=== PATIENT | female | born 1945 | race Two or more races ===

== ENCOUNTER 2017-05-04 11:23 | Emergency (ER) | payer MEDICARE ==
[2017-05-04 11:32] VITALS: TEMP 98.2
[2017-05-04] MEDS ORDERED: SODIUM CHLORIDE 0.9% 1,000 ML IV STA (12:27)
[2017-05-04] MEDS ORDERED: METOCLOPRAMIDE 5 MG/ML 2 ML VIAL IVP STA (12:31)
--- NOTE | 2017-05-04 12:35 | ED ---
General Adult HPI - General Chief complaint: Dizziness Stated complaint: Light headed, dizzy Time Seen by Provider: 05/04/17 12:00 Source: patient, RN notes reviewed Mode of arrival: wheelchair Limitations: no limitations - History of Present Illness Initial comments: Patient is a pleasant 71-year-old female presenting to the emergency department or lightheadedness. Patient did have an episode 2 days ago. Patient felt fine yesterday. This morning patient felt nauseated and lightheaded again. Patient has had some belching. Patient did have some facial flushing that has resolved. No chest pain. No dyspnea. No confusion or weakness. Patient is currently symptom-free. - Related Data Home Medications Medication Instructions Recorded Confirmed Aspirin 81 mg PO BID 05/04/17 05/04/17 Calcium Carbonate [Calcium] 600 mg PO Q72H 05/04/17 05/04/17 Cholecalciferol [Vitamin D3] 1,000 unit PO Q72H 05/04/17 05/04/17 Metoprolol Succinate (ER) [Toprol 25 mg PO HS 05/04/17 05/04/17 Xl] Vitamin B Complex 1 tab PO Q72H 05/04/17 05/04/17 Allergies Allergy/AdvReac Type Severity Reaction Status Date / Time No Known Allergies Allergy Verified 05/04/17 12:28 Review of Systems ROS Statement: Those systems with pertinent positive or pertinent negative responses have been documented in the HPI. ROS Other: All systems not noted in ROS Statement are negative. Constitutional: Denies: fever Eyes: Denies: eye pain ENT: Denies: ear pain Respiratory: Denies: dyspnea Cardiovascular: Denies: chest pain Endocrine: Denies: fatigue Gastrointestinal: Reports: nausea. Denies: abdominal pain Genitourinary: Denies: urgency Musculoskeletal: Denies: back pain Skin: Denies: rash Neurological: Denies: weakness Past Medical History Past Medical History: Atrial Flutter, Coronary Artery Disease (CAD) Additional Past Medical History / Comment(s): mitral valve prolase History of Any Multi-Drug Resistant Organisms: None Reported Past Surgical History: Bowel Resection, Hysterectomy, Orthopedic Surgery Additional Past Surgical History / Comment(s): lt knee Past Psychological History: No Psychological Hx Reported Smoking Status: Never smoker Past Alcohol Use History: Occasional Past Drug Use History: None Reported General Exam Limitations: no limitations General appearance: alert, in no apparent distress Head exam: Present: atraumatic Eye exam: Present: normal appearance, PERRL, EOMI. Absent: nystagmus ENT exam: Present: normal oropharynx Neck exam: Present: normal inspection Respiratory exam: Present: normal lung sounds bilaterally Cardiovascular Exam: Present: regular rate, normal rhythm Expanded Peripheral pulses: 2+: Radial (R), Radial (L), Dorsalis Pedis (R), Dorsalis Pedis (L) GI/Abdominal exam: Present: soft. Absent: tenderness Extremities exam: Present: normal inspection Neurological exam: Present: alert, oriented X3, CN II-XII intact. Absent: motor sensory deficit Psychiatric exam: Present: normal affect, normal mood Skin exam: Present: normal color Course Vital Signs 05/04/17 05/04/17 05/04/17 11:29 12:39 13:20 Temperature 98.2 F Pulse Rate 63 61 60 Respiratory 20 18 17 Rate Blood Pressure 197/88 159/74 176/79 O2 Sat by Pulse 99 100 99 Oximetry 05/04/17 14:47 Temperature Pulse Rate 67 Respiratory 16 Rate Blood Pressure 176/82 O2 Sat by Pulse 97 Oximetry EKG Findings - EKG Comments: EKG Findings:: Sinus bradycardia 59. PVC present. For screening AV block with [place] of 204. QRS 92. QT 444. QTC 439. Normal axis. Incomplete right bundle- branch block. No acute ST change. Medical Decision Making - Medical Decision Making Patient reevaluated and resting comfortably in bed. Patient remained symptom- free. Patient did get out of bed 3 times and ambulate without any difficulty. Patient is comfortable with discharge home. Patient is advised close follow-up with her doctor. - Lab Data Result diagrams: 05/04/17 11:52 05/04/17 11:52 Lab Results 05/04/17 05/04/17 05/04/17 Range/Units 11:52 11:52 11:52 WBC 8.7 (3.8-10.6) k/uL RBC 4.10 (3.80-5.40) m/uL Hgb 13.2 (11.4-16.0) gm/dL Hct 40.4 (34.0-46.0) % MCV 98.6 (80.0-100.0) fL MCH 32.2 (25.0-35.0) pg MCHC 32.7 (31.0-37.0) g/dL RDW 14.5 (11.5-15.5) % Plt Count 226 (150-450) k/uL Neutrophils % 70 % Lymphocytes % 22 % Monocytes % 6 % Eosinophils % 1 % Basophils % 0 % Neutrophils # 6.1 (1.3-7.7) k/uL Lymphocytes # 1.9 (1.0-4.8) k/uL Monocytes # 0.5 (0-1.0) k/uL Eosinophils # 0.1 (0-0.7) k/uL Basophils # 0.0 (0-0.2) k/uL PT 9.8 (9.0-12.0) sec INR 1.0 (<1.1) APTT 22.0 (22.0-30.0) sec Sodium 138 (137-145) mmol/L Potassium 4.3 (3.5-5.1) mmol/L Chloride 102 (98-107) mmol/L Carbon Dioxide 27 (22-30) mmol/L Anion Gap 9 mmol/L BUN 18 H (7-17) mg/dL Creatinine 0.75 (0.52-1.04) mg/dL Est GFR (MDRD) Af Amer >60 (>60 ml/min/1.73 sqM) Est GFR (MDRD) Non-Af >60 (>60 ml/min/1.73 sqM) Glucose 100 H (74-99) mg/dL Calcium 9.4 (8.4-10.2) mg/dL Total Bilirubin 0.5 (0.2-1.3) mg/dL AST 34 (14-36) U/L ALT 45 (9-52) U/L Alkaline Phosphatase 99 (38-126) U/L Total Creatine Kinase (30-135) U/L CK-MB (CK-2) (0.0-2.4) ng/mL CK-MB (CK-2) Rel Index Troponin I (0.000-0.034) ng/mL Total Protein 7.2 (6.3-8.2) g/dL Albumin 4.2 (3.5-5.0) g/dL 05/04/17 Range/Units 11:52 WBC (3.8-10.6) k/uL RBC (3.80-5.40) m/uL Hgb (11.4-16.0) gm/dL Hct (34.0-46.0) % MCV (80.0-100.0) fL MCH (25.0-35.0) pg MCHC (31.0-37.0) g/dL RDW (11.5-15.5) % Plt Count (150-450) k/uL Neutrophils % % Lymphocytes % % Monocytes % % Eosinophils % % Basophils % % Neutrophils # (1.3-7.7) k/uL Lymphocytes # (1.0-4.8) k/uL Monocytes # (0-1.0) k/uL Eosinophils # (0-0.7) k/uL Basophils # (0-0.2) k/uL PT (9.0-12.0) sec INR (<1.1) APTT (22.0-30.0) sec Sodium (137-145) mmol/L Potassium (3.5-5.1) mmol/L Chloride (98-107) mmol/L Carbon Dioxide (22-30) mmol/L Anion Gap mmol/L BUN (7-17) mg/dL Creatinine (0.52-1.04) mg/dL Est GFR (MDRD) Af Amer (>60 ml/min/1.73 sqM) Est GFR (MDRD) Non-Af (>60 ml/min/1.73 sqM) Glucose (74-99) mg/dL Calcium (8.4-10.2) mg/dL Total Bilirubin (0.2-1.3) mg/dL AST (14-36) U/L ALT (9-52) U/L Alkaline Phosphatase (38-126) U/L Total Creatine Kinase 34 (30-135) U/L CK-MB (CK-2) 1.1 (0.0-2.4) ng/mL CK-MB (CK-2) Rel Index 3.2 Troponin I <0.012 (0.000-0.034) ng/mL Total Protein (6.3-8.2) g/dL Albumin (3.5-5.0) g/dL - Radiology Data Radiology results: report reviewed (Computed tomography scan of the brain revealed no acute abnormality.) Disposition Clinical Impression: Lightheadedness Disposition: HOME SELF-CARE Condition: Stable Instructions: Dizziness (ED) Additional Instructions: Please follow-up with your doctor in the next day or 2 for recheck. Return for uncontrolled blood pressure, weakness or confusion, passing out, worsening symptoms or other concerns. Referrals: Leslie Manning MD [Primary Care Provider] - 1-2 days Time of Disposition: 15:02
[2017-05-04 12:51] LABS: Basophils % (A) 0 %; CH 32.5; CHCM 33.2; Eosinophils # (A) 0.1 k/uL (0-0.7); Eosinophils % (A) 1 %; HCT 40.4 % (34.0-46.0); HDW 2.24; HGB 13.2 gm/dL (11.4-16.0); Luc # (Auto) 0.16; Luc % (Auto) 2; Lymphocytes # (A) 1.9 k/uL (1.0-4.8); Lymphocytes % (A) 22 %; MCH 32.2 pg (25.0-35.0); MCHC 32.7 g/dL (31.0-37.0); MCV 98.6 fL (80.0-100.0); Mean Platelet Volume 6.9; Monocytes # (A) 0.5 k/uL (0-1.0); Monocytes % (A) 6 %; Neutrophils # (A) 6.1 k/uL (1.3-7.7); Neutrophils % (A) 70 %; RDW 14.5 % (11.5-15.5); WBC 8.7 k/uL (3.8-10.6); WBC (Perox) 8.77
[2017-05-04 12:59] LABS: Prothrombin Time 9.8 sec (9.0-12.0)
[2017-05-04 13:02] LABS: ALT 45 U/L (9-52); AST 34 U/L (14-36); Alkaline Phosphatase 99 U/L (38-126); Anion Gap 9 mmol/L; Blood Urea Nitrogen 18 mg/dL (7-17); Calcium 9.4 mg/dL (8.4-10.2); Carbon Dioxide 27 mmol/L (22-30); Chloride 102 mmol/L (98-107); Glucose 100 mg/dL (74-99); Non-African American GFR(MDRD) >60 (>60 ml/min/1.73 sqM); Potassium 4.3 mmol/L (3.5-5.1); Sodium 138 mmol/L (137-145); Total Bilirubin 0.5 mg/dL (0.2-1.3); Total Protein 7.2 g/dL (6.3-8.2)
--- NOTE | 2017-05-04 13:13 | CT ---
EXAMINATION TYPE: CT brain wo con DATE OF EXAM: 05/04/2017 COMPARISON: NONE HISTORY: 71-year-old female vertical, abnormal EKG TECHNIQUE: Examination was done in axial plane without intravenous contrast. Coronal and sagittal r econstructions performed. CT DLP: 945.5 mGycm Automated exposure control for dose reduction was used. FINDINGS: There is no evidence of acute intracranial hemorrhage, acute ischemic changes, mass, mass-effect, or extra-axial fluid collection. There is no effacement of cerebral sulci or basal subarachnoid cister ns. There is no hydrocephalus. There is no midline shift. Hernandez-white matter distinction is preserv ed. Patient's gaze is divergent suggesting underlying strabismus. Mastoid air cells and paranasal sinuses appear pneumatized. IMPRESSION: No acute intracranial abnormality seen.
[2017-05-04 13:14] LABS: Creatine Kinase 34 U/L (30-135)
[2017-05-04 13:27] LABS: Creatine Kinase MB 1.1 ng/mL (0.0-2.4); Troponin I <0.012 ng/mL (0.000-0.034)
[2017-05-04 14:49] VITALS: BP 176/82; PULSE 67; RESP 16
== END 2017-05-04 15:12 | disposition home or self-care (01) ==
LOC: EC 11:23
DX: R42 Dizziness and giddiness (principal); R11.0 Nausea; R14.2 Eructation; Z79.82 Long term (current) use of aspirin; Z79.899 Other long term (current) drug therapy; Z53.20 Procedure and treatment not carried out because of patient's decision for unspecified reasons
CPT/HCPCS: 36415; 70450; 80053; 82550; 82553; 84484; 85025; 85610; 85730; 93005; 96360; 96361; 99284

== ENCOUNTER 2020-08-10 09:41 | Inpatient (IN) | payer MEDICARE ==
[2020-08-10] MEDS ORDERED: DILTIAZEM DRIP BOLUS FROM BAG 1 MG SOLN IV ONE (10:03)
--- NOTE | 2020-08-10 10:07 | ED ---
General Adult HPI - General Chief complaint: Arrhythmia/Palpitations Stated complaint: chest pain Time Seen by Provider: 08/10/20 09:46 Source: patient, RN notes reviewed, old records reviewed Mode of arrival: ambulatory Limitations: no limitations - History of Present Illness Initial comments: 74-year-old female presents for evaluation of palpitations, sensation that her heart is racing. She has a history of atrial flutter. She is currently on meto prolol. She denies associated chest pain. She's been compliant with her medications. She is currently on aspirin only, no anticoagulation. Denies fever. Denies vomiting. She does report some dyspnea associated with her palpitations. She is 5 weeks postop left knee replacement. - Related Data Home Medications Medication Instructions Recorded Confirmed Aspirin 162 mg PO DAILY 05/04/17 08/10/20 Calcium Carbonate [Calcium] 600 mg PO DAILY 05/04/17 08/10/20 Cholecalciferol [Vitamin D3] 1,000 unit PO DAILY 05/04/17 08/10/20 Metoprolol Succinate (ER) [Toprol 25 mg PO DAILY 05/04/17 08/10/20 Xl] Vitamin B Complex 1 tab PO DAILY 05/04/17 08/10/20 Ezetimibe [Zetia] 10 mg PO DAILY 08/10/20 08/10/20 Losartan Potassium [Cozaar] 25 mg PO DAILY 08/10/20 08/10/20 Allergies Allergy/AdvReac Type Severity Reaction Status Date / Time No Known Allergies Allergy Verified 08/10/20 11:12 Review of Systems ROS Statement: Those systems with pertinent positive or pertinent negative responses have been documented in the HPI. ROS Other: All systems not noted in ROS Statement are negative. Past Medical History Past Medical History: Atrial Flutter, Coronary Artery Disease (CAD) Additional Past Medical History / Comment(s): mitral valve prolase History of Any Multi-Drug Resistant Organisms: None Reported Past Surgical History: Bowel Resection, Hysterectomy, Joint Replacement, Orthopedic Surgery Additional Past Surgical History / Comment(s): lt knee Past Psychological History: No Psychological Hx Reported Past Alcohol Use History: Occasional Past Drug Use History: None Reported General Exam Limitations: no limitations General appearance: alert, in no apparent distress Head exam: Present: atraumatic, normocephalic Eye exam: Present: normal appearance, PERRL ENT exam: Present: normal exam Neck exam: Present: normal inspection. Absent: tenderness, meningismus Respiratory exam: Present: normal lung sounds bilaterally. Absent: respiratory distress, wheezes Cardiovascular Exam: Present: normal rhythm, tachycardia GI/Abdominal exam: Present: soft. Absent: distended, tenderness, guarding Extremities exam: Absent: pedal edema, calf tenderness Neurological exam: Present: alert, oriented X3 Psychiatric exam: Present: normal affect, normal mood Skin exam: Present: warm, dry, intact Course Vital Signs 08/10/20 08/10/20 08/10/20 09:48 10:34 11:19 Temperature 98.1 F 98.0 F Pulse Rate 129 H 129 H 125 H Respiratory 18 16 17 Rate Blood Pressure 124/84 128/99 135/86 O2 Sat by Pulse 99 95 99 Oximetry EKG Findings - EKG Comments: EKG Findings:: EKG: Atrial flutter with a 2-1 AV conduction, ST segment depression predominantly in the precordial leads, V3 V4 and possibly V5. No ST segment elevation, rate of 140, QRS duration 92, QTC 500 Medical Decision Making - Medical Decision Making 74-year-old female with palpitations, found to be in atrial flutter with a 2-1 conduction, no ST segment elevation. No active chest pain. She does have dyspnea and is 5 weeks postoperative left knee replacement. CT angiography is negative for pulmonary embolism, does show some interstitial fluid consistent with CHF. She has a normal CBC, normal CMP, negative initial troponin, elevated BNP. She started on Cardizem and heparin in the emergency department. She will be admitted for rate control, and diuresis. Case discussed with admitting physician Dr. Ryder and cardiology has been placed on consult. - Lab Data Result diagrams: 08/10/20 10:06 08/10/20 10:06 Lab Results 08/10/20 08/10/20 08/10/20 Range/Units 10:06 10:06 10:06 WBC 7.3 (3.8-10.6) k/uL RBC 3.82 (3.80-5.40) m/uL Hgb 12.0 (11.4-16.0) gm/dL Hct 37.4 (34.0-46.0) % MCV 97.8 (80.0-100.0) fL MCH 31.3 (25.0-35.0) pg MCHC 32.0 (31.0-37.0) g/dL RDW 14.0 (11.5-15.5) % Plt Count 280 (150-450) k/uL Neutrophils % 67 % Lymphocytes % 22 % Monocytes % 7 % Eosinophils % 2 % Basophils % 0 % Neutrophils # 4.9 (1.3-7.7) k/uL Lymphocytes # 1.6 (1.0-4.8) k/uL Monocytes # 0.5 (0-1.0) k/uL Eosinophils # 0.1 (0-0.7) k/uL Basophils # 0.0 (0-0.2) k/uL PT 9.9 (9.0-12.0) sec INR 0.9 (<1.2) APTT 22.1 (22.0-30.0) sec Sodium 135 L (137-145) mmol/L Potassium 4.5 (3.5-5.1) mmol/L Chloride 102 (98-107) mmol/L Carbon Dioxide 24 (22-30) mmol/L Anion Gap 9 mmol/L BUN 15 (7-17) mg/dL Creatinine 0.72 (0.52-1.04) mg/dL Est GFR (CKD-EPI)AfAm >90 (>60 ml/min/1.73 sqM) Est GFR (CKD-EPI)NonAf 84 (>60 ml/min/1.73 sqM) Glucose 119 H (74-99) mg/dL Calcium 9.4 (8.4-10.2) mg/dL Magnesium 1.8 (1.6-2.3) mg/dL Total Bilirubin 0.6 (0.2-1.3) mg/dL AST 28 (14-36) U/L ALT 22 (4-34) U/L Alkaline Phosphatase 99 (38-126) U/L Troponin I (0.000-0.034) ng/mL NT-Pro-B Natriuret Pep pg/mL Total Protein 6.8 (6.3-8.2) g/dL Albumin 4.0 (3.5-5.0) g/dL 08/10/20 08/10/20 Range/Units 10:06 10:13 WBC (3.8-10.6) k/uL RBC (3.80-5.40) m/uL Hgb (11.4-16.0) gm/dL Hct (34.0-46.0) % MCV (80.0-100.0) fL MCH (25.0-35.0) pg MCHC (31.0-37.0) g/dL RDW (11.5-15.5) % Plt Count (150-450) k/uL Neutrophils % % Lymphocytes % % Monocytes % % Eosinophils % % Basophils % % Neutrophils # (1.3-7.7) k/uL Lymphocytes # (1.0-4.8) k/uL Monocytes # (0-1.0) k/uL Eosinophils # (0-0.7) k/uL Basophils # (0-0.2) k/uL PT (9.0-12.0) sec INR (<1.2) APTT (22.0-30.0) sec Sodium (137-145) mmol/L Potassium (3.5-5.1) mmol/L Chloride (98-107) mmol/L Carbon Dioxide (22-30) mmol/L Anion Gap mmol/L BUN (7-17) mg/dL Creatinine (0.52-1.04) mg/dL Est GFR (CKD-EPI)AfAm (>60 ml/min/1.73 sqM) Est GFR (CKD-EPI)NonAf (>60 ml/min/1.73 sqM) Glucose (74-99) mg/dL Calcium (8.4-10.2) mg/dL Magnesium (1.6-2.3) mg/dL Total Bilirubin (0.2-1.3) mg/dL AST (14-36) U/L ALT (4-34) U/L Alkaline Phosphatase (38-126) U/L Troponin I <0.012 (0.000-0.034) ng/mL NT-Pro-B Natriuret Pep 3690 pg/mL Total Protein (6.3-8.2) g/dL Albumin (3.5-5.0) g/dL Critical Care Time Critical Care Time: Yes Total Critical Care Time: 35 Disposition Clinical Impression: Atrial flutter, CHF (congestive heart failure) Disposition: ADMITTED IP TO THIS HOSP Condition: Stable Is patient prescribed a controlled substance at d/c from ED?: No Referrals: Leslie Manning MD [Primary Care Provider] - 1-2 days Decision to Admit Reason: Admit from EC Decision Date: 08/10/20 Decision Time: 11:39
[2020-08-10 10:22] LABS: Basophils % (A) 0 %; Eosinophils # (A) 0.1 k/uL (0-0.7); Eosinophils % (A) 2 %; HCT 37.4 % (34.0-46.0); Lymphocytes # (A) 1.6 k/uL (1.0-4.8); Lymphocytes % (A) 22 %; MCH 31.3 pg (25.0-35.0); MCV 97.8 fL (80.0-100.0); Mean Platelet Volume 7.3; Monocytes # (A) 0.5 k/uL (0-1.0); Monocytes % (A) 7 %; Neutrophils # (A) 4.9 k/uL (1.3-7.7); Neutrophils % (A) 67 %; Platelet Count 280 k/uL (150-450); RBC 3.82 m/uL (3.80-5.40); WBC 7.3 k/uL (3.8-10.6)
--- NOTE | 2020-08-10 10:30 | XR ---
EXAMINATION TYPE: XR chest 2V DATE OF EXAM: 08/10/2020 COMPARISON: NONE HISTORY: Dysrhythmia and chest heaviness. TECHNIQUE: Frontal and lateral views of the chest are obtained. FINDINGS: Background chronic emphysematous change with patchy left basilar opacity. Suspect tiny bila teral pleural effusions. And no pneumothorax seen bilaterally. The cardiac silhouette size is upper l imits of normal with atherosclerotic aorta. The osseous structures are demineralized. IMPRESSION: Chronic emphysematous change with tiny bilateral pleural effusions and patchy left basil ar acute atelectasis and/or infiltrate.
[2020-08-10] MEDS: DILTIAZEM 125 MG in SODIUM CHLORIDE 0.9% 100 ML IV SCH (10:31)
[2020-08-10 10:40] LABS: ALT 22 U/L (4-34); AST 28 U/L (14-36); African American GFR (CKD) >90 (>60 ml/min/1.73 sqM); Alkaline Phosphatase 99 U/L (38-126); Anion Gap 9 mmol/L; Blood Urea Nitrogen 15 mg/dL (7-17); Calcium 9.4 mg/dL (8.4-10.2); Carbon Dioxide 24 mmol/L (22-30); Chloride 102 mmol/L (98-107); Glucose 119 mg/dL (74-99); Magnesium 1.8 mg/dL (1.6-2.3); Non-African American GFR(CKD) 84 (>60 ml/min/1.73 sqM); Potassium 4.5 mmol/L (3.5-5.1); Sodium 135 mmol/L (137-145); Total Bilirubin 0.6 mg/dL (0.2-1.3); Total Protein 6.8 g/dL (6.3-8.2)
[2020-08-10 10:42] LABS: INR 0.9 (<1.2); Partial Thromboplastin Time 22.1 sec (22.0-30.0); Prothrombin Time 9.9 sec (9.0-12.0)
--- NOTE | 2020-08-10 11:10 | CT ---
EXAMINATION TYPE: CT angio chest DATE OF EXAM: 08/10/2020 COMPARISON: None HISTORY: tachycardia, shortness of breath CT DLP: 313.2 mGycm CONTRAST: CT chest with contrast and 3D reconstruction with MIP imaging is performed with IV Contrast, patient injected with 100 mL of Isovue 370. Contrast-enhanced CT of the chest was performed through the course of the pulmonary arteries with yessica g and mediastinal window settings submitted. 3D reconstruction with MIP imaging was also performed. PULMONARY ARTERIES: The pulmonary arteries and their major tributaries are patent. I do not see noni dence for sizable filling defect to suggest pulmonary embolic process. LUNGS: The lungs are clear and free of infiltrate. Mild right basilar atelectasis. No pulmonary nodul e or mass is detected. Summary venous congestion and small effusions noted. MEDIASTINUM: Thoracic aorta is of normal caliber,however, evaluation is limited given timing of the contrast bolus. If there is concern for thoracic aortic pathology consider SANJU. Correlate clinicall y . The heart is enlarged. No evidence for mediastinal mass. No mediastinal lymph nodes greater marshal n 1cm. HILAR STRUCTURES: No evidence for mass. No hilar lymph nodes greater than 1 cm. UPPER ABDOMEN: No significant abnormality is seen. IMPRESSION: 1. No evidence for Pulmonary embolism at this time. 2. Correlate for mild congestive failure.
[2020-08-10] MEDS ORDERED: HEPARIN SODIUM,PORCINE 5,000 UNIT/ML 1 ML VIAL IV PRN (11:17)
[2020-08-10] MEDS ORDERED: HEPARIN SODIUM,PORCINE 5,000 UNIT/ML 1 ML VIAL IV ONE (11:17)
[2020-08-10] MEDS ORDERED: FUROSEMIDE 10 MG/ML 4 ML VIAL IV STA (11:18)
[2020-08-10] MEDS ORDERED: ACETAMINOPHEN TAB 325 MG TAB PO PRN (11:35)
[2020-08-10] MEDS ORDERED: NALOXONE 0.4 MG/ML 1 ML VIAL IV PRN (11:35)
[2020-08-10] MEDS: HEPARIN SOD,PORK IN 0.45% NACL 25,000 UNIT in 0.45% NACL 1 250ML.BAG IV SCH (12:24)
--- NOTE | 2020-08-10 16:18 | P.HPIM ---
History of Present Illness H&P Date: 08/10/20 Chief Complaint: Palpitations Ms. Monroe is a 84-[id number]-[id number]-year-old female with a past medical history of atrial flutter, hyperlipidemia, benign colonic polyps admitted to the hospital with a chief complaint of palpitations. The patient states this morning she had a one cup of black coffee when she started to notice that she was feeling that her heart was racing. Eventually patient tried to rest for a few minutes, then try to have some coffee with milk in it, had palpitations did not go away and she felt that she was slightly short of breath. Patient mentions that she has history of atrial flutter in the past, 5 years ago and was treated with medications for it at that point of time. She mentions that she follows with Dr. De La Fuente, cardiology. The last time she has seen her sample collector was in January 2020. Patient mentions that she had left knee arthroplasty done 5 weeks back. At that time she was started Eliquis, for DVT prophylaxis. But her leg had turned black and blue after which it was stopped. Patient states that she also got a Doppler of her lower extremities that was negative for DVT. So the patient was put on aspirin high dose for a couple of weeks. Currently patient is taking only baby aspirin every day, she also takes Toprol-XL daily. patient denied having any fevers chills or rigors. No cough or difficulty in breathing. No back pain nausea vomiting or diarrhea. No dysuria or hematuria. Patient denies having any weakness of her extremities. No headache, blurring of vision or speech abnormalities. Patient denied having any lower extremity swelling. No orthopnea , exertional dyspnea or PND Patient denies having any gait instability. In the ER, patient had a chest x-ray done showing chronic emphysematous changes with bilateral pleural effusions and patchy left basilar acute atelectasis/infiltrate. EKG showed atrial flutter with 2:1 A-V conduction. Eventually patient had CT MG of the chest which was negative for pulmonary embolism, coronary left for mild congestive heart failure. Patient's labs reviewed shows normal CBC and electrolytes within normal limits. Review of Systems REVIEW OF SYSTEMS: PSYCH: No anxiety or depression NEURO:No c/o weakness of the extremties, No facial droop, No speech abnormalities. VASCULAR: Peripheral nervous system within the normal limits no edema HEMATOLOGIC: No history of easy bleeding and bruising . No recent infections . RESPIRATORY: No cough, No SOB, No chest discomfort. IMMUNE: No infections INTEGUMENT: no rashes OPHTHALMOLOGIC: No blurry vision and no eye discharge : No dysuria or hematuria CARDIAC: As per HPI MUSCULOSKELETAL : No Aches or pains in the joints or muscles. GI: No abdominal pain, Nausea or vomiting. No constipation or diarrhea. 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 History of Any Multi-Drug Resistant Organisms: None Reported Past Surgical History: Bowel Resection, Ear Surgery, Heart Catheterization, Hysterectomy, Joint Replacement, Orthopedic Surgery Additional Past Surgical History / Comment(s): 06/2020 L knee arthroplasty, L knee arthroscopy, EGD, colonoscopies and had bowel tear (tissue was thin) then had bowel resection, L ear surgery, D&Cs. Additional Past Anesthesia/Blood Transfusion Reaction / Comment(s): Pt states she is sensitive to anesthetic medications. Past Psychological History: No Psychological Hx Reported Additional Psychological History / Comment(s): Pt resides with her spouse. She is independent. She is currently using a cane d/t recent L knee replacement. Smoking Status: Current some day smoker, Light tobacco smoker Past Alcohol Use History: Daily Additional Past Alcohol Use History / Comment(s): Pt started smoking just occasionally in 1962 and quit in 1967. She states she normally drinks 2 glasses of wine a day but has not had any alcohol since her knee surgery, 5 weeks ago. Past Drug Use History: None Reported - Past Family History Father History Unknown: Yes Additional Family Medical History / Comment(s): Father young from suicide. Mother Family Medical History: No Reported History Medications and Allergies Home Medications Medication Instructions Recorded Confirmed Type Aspirin 162 mg PO DAILY 05/04/17 08/10/20 History Calcium Carbonate [Calcium] 600 mg PO DAILY 05/04/17 08/10/20 History Cholecalciferol [Vitamin D3] 1,000 unit PO DAILY 05/04/17 08/10/20 History Metoprolol Succinate (ER) [Toprol 25 mg PO DAILY 05/04/17 08/10/20 History Xl] Vitamin B Complex 1 tab PO DAILY 05/04/17 08/10/20 History Ezetimibe [Zetia] 10 mg PO DAILY 08/10/20 08/10/20 History Losartan Potassium [Cozaar] 25 mg PO DAILY 08/10/20 08/10/20 History Allergies Allergy/AdvReac Type Severity Reaction Status Date / Time No Known Allergies Allergy Verified 08/10/20 11:12 Physical Exam Vitals: Vital Signs Temp Pulse Pulse Resp BP BP Pulse Ox 08/10/20 15:21 96.5 F L 120 H 16 116/59 95 08/10/20 12:34 126 H 18 122/80 98 08/10/20 11:19 125 H 17 135/86 99 08/10/20 10:34 98.0 F 129 H 16 128/99 95 08/10/20 09:48 98.1 F 129 H 18 124/84 99 Intake and Output 08/10/20 08/10/20 08/10/20 06:59 14:59 22:59 Intake Total 4 Balance 4 Intake: Intake, IV Titration 4 Amount Diltiazem 125 mg In 4 Sodium Chloride 0.9% 100 ml @ 5 MG/HR 5 mls/hr IV .Q24H [facility] Rx#:[id number] Other: Weight 72.575 kg PHYSICAL EXAM GEN. APPEARANCE: alert, in no apparent distress HEAD EXAM: atraumatic, normocephalic, normal inspection EYE EXAM: No pallor. No icterus. ENT EXAM: normal exam, mucous membranes moist NECK EXAM: No JVD RESPIRATORY EXAM: normal lung sounds bilaterally. Faint crackles at the lower lung base CARDIOVASCULAR EXAM: Regularly irregular GI/ABDOMINAL EXAM: Abdomen is soft nontender no organomegaly. Bowel sounds are positive. EXTREMITIES EXAM: No edema. Peripheral pulses felt. Left knee surgical scar well-healed NEUROLOGICAL EXAM: alert, oriented X3, focal neurological deficits PSYCHIATRIC EXAM: normal affect, normal mood SKIN EXAM: no rash Results CBC & Chem 7: 08/11/20 07:16 08/11/20 07:16 Labs: Abnormal Lab Results - Last 24 Hours (Table) 08/10/20 Range/Units 10:06 Sodium 135 L (137-145) mmol/L Glucose 119 H (74-99) mg/dL Thrombosis Risk Factor Assmnt - Choose All That Apply Any of the Below Risk Factors Present?: Yes Each Factor Represents 1 point: Heart failure (<1month), Obesity (BMI >25) Other Risk Factors: Yes Each Risk Factor Represents 2 Points: Age 61-74 years Other congenital or acquired thrombophilia - If yes, enter type in comment: No Thrombosis Risk Factor Assessment Total Risk Factor Score: 4 Thrombosis Risk Factor Assessment Level: Moderate Risk Assessment and Plan Assessment: ASSESSMENT Atrial flutter to his 2:1 conduction Hyperlipidemia Recent left knee arthroplasty done 5 weeks ago History of bowel resection History of atrial flutter PLAN: Patient has been started on heparin and Cardizem drip. Patient still continues to be in atrial flutter, at times sinus rhythm noticed. Cardiology has been consulted. Patient has been restarted on her home medications. Further recommendations to follow depending on the progress of the patient.
[2020-08-11] MEDS: DILTIAZEM 125 MG in SODIUM CHLORIDE 0.9% 100 ML IV SCH (04:32)
[2020-08-11 07:44] LABS: Basophils % (A) 1 %; Eosinophils # (A) 0.2 k/uL (0-0.7); Eosinophils % (A) 3 %; HCT 36.2 % (34.0-46.0); HGB 11.3 gm/dL (11.4-16.0); Lymphocytes # (A) 1.6 k/uL (1.0-4.8); Lymphocytes % (A) 35 %; MCH 30.8 pg (25.0-35.0); MCHC 31.3 g/dL (31.0-37.0); MCV 98.5 fL (80.0-100.0); Mean Platelet Volume 7.2; Monocytes # (A) 0.3 k/uL (0-1.0); Monocytes % (A) 7 %; Neutrophils # (A) 2.4 k/uL (1.3-7.7); Neutrophils % (A) 52 %; Platelet Count 256 k/uL (150-450); RBC 3.68 m/uL (3.80-5.40); RDW 14.1 % (11.5-15.5); WBC 4.5 k/uL (3.8-10.6)
[2020-08-11 07:57] LABS: African American GFR (CKD) >90 (>60 ml/min/1.73 sqM); Anion Gap 9 mmol/L; Blood Urea Nitrogen 13 mg/dL (7-17); Carbon Dioxide 28 mmol/L (22-30); Chloride 99 mmol/L (98-107); Glucose 146 mg/dL (74-99); Non-African American GFR(CKD) 82 (>60 ml/min/1.73 sqM); Potassium 3.9 mmol/L (3.5-5.1); Sodium 136 mmol/L (137-145)
[2020-08-11] MEDS: LOSARTAN 25 MG TAB PO SCH (08:49)
[2020-08-11] MEDS: EZETIMIBE 10 MG TAB PO SCH (08:49)
[2020-08-11] MEDS: CHOLECALCIFEROL 1,000 UNIT TAB PO SCH (08:49)
[2020-08-11] MEDS: CALCIUM CARB-VIT D 500MG-200UN 1 EACH TAB PO SCH (08:49)
[2020-08-11] MEDS: METOPROLOL SUCCINATE (ER) 50 MG TAB.ER.24H PO SCH (08:49)
[2020-08-11] MEDS ORDERED: METOPROLOL SUCCINATE (ER) 25 MG TAB.ER.24H PO SCH (09:00)
[2020-08-11] MEDS ORDERED: PROPAFENONE 150 MG TAB PO STA (11:06)
--- NOTE | 2020-08-11 13:59 | P.CRDCN ---
History of Present Illness Consult date: 08/11/20 Reason for Consult (text): Atrial flutter Chief complaint: Palpitations and shortness of breath History of present illness: This is a pleasant 74-year-old female with history of atrial flutter, according to the patient she has not been in atrial flutter for approximately 8 years, hyperlipidemia, nonsmoker, had left knee arthroplasty done in June 2020, she drinks 2 glasses of wine per day. She presented to the hospital on this occasion with symptoms of palpitations and heart racing with associated shortness of breath. According to the patient the symptoms have been going on for approximately one week duration. Her chest x-ray on presentation here showed chronic emphysema with tiny bilateral pleural effusions. CTA of the chest was negative for pulmonary embolism. EKG showed atrial flutter with a 2 to one conduction, heart rate 130s to 140s. Blood pressure 100/50, heart rate in the 120s, respirations 16, 96% on room air. White blood cell count 7.3, hemoglobin 12.0, platelet count 280. Sodium 135, potassium 4.5, chloride 102, CO2 24, BUN 15, creatinine 0.7. Troponin 0.012. BNP 3690. Patient is currently on a Cardizem drip at 5 mg per hour, she also received a dose of IV Lasix times one in the emergency room and had excellent urine output from that. She is currently on IV heparin drip, losartan 25 mg daily and metoprolol 25 mg daily. Patient had been put on Eliquis after her left knee arthroplasty, but she discontinued it on her own because of some leg swelling. She has been hesitant in the past as well to take anticoagulation. She takes a baby aspirin daily I did have a lengthy discussion with the patient regarding stroke prevention. She states that she will consider going back on Eliquis, we will rediscuss this later today. We will order a TSH, increase her dose of beta petey, we will also request an echocardiogram with Doppler study be performed. If the patient's LV function is normal we will consider giving the patient 600 mg of Rythmol in attempt to convert her over to normal sinus rhythm. 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 History of Any Multi-Drug Resistant Organisms: None Reported Past Surgical History: Bowel Resection, Ear Surgery, Heart Catheterization, Hysterectomy, Joint Replacement, Orthopedic Surgery Additional Past Surgical History / Comment(s): 06/2020 L knee arthroplasty, L knee arthroscopy, EGD, colonoscopies and had bowel tear (tissue was thin) then had bowel resection, L ear surgery, D&Cs. Additional Past Anesthesia/Blood Transfusion Reaction / Comment(s): Pt states she is sensitive to anesthetic medications. Past Psychological History: No Psychological Hx Reported Additional Psychological History / Comment(s): Pt resides with her spouse. She is independent. She is currently using a cane d/t recent L knee replacement. Smoking Status: Current some day smoker, Light tobacco smoker Past Alcohol Use History: Daily Additional Past Alcohol Use History / Comment(s): Pt started smoking just occasionally in 1962 and quit in 1967. She states she normally drinks 2 glasses of wine a day but has not had any alcohol since her knee surgery, 5 weeks ago. Past Drug Use History: None Reported - Past Family History Father History Unknown: Yes Additional Family Medical History / Comment(s): Father young from suicide. Mother Family Medical History: No Reported History Medications and Allergies Home Medications Medication Instructions Recorded Confirmed Type Aspirin 162 mg PO DAILY 05/04/17 08/10/20 History Calcium Carbonate [Calcium] 600 mg PO DAILY 05/04/17 08/10/20 History Cholecalciferol [Vitamin D3] 1,000 unit PO DAILY 05/04/17 08/10/20 History Metoprolol Succinate (ER) [Toprol 25 mg PO DAILY 05/04/17 08/10/20 History Xl] Vitamin B Complex 1 tab PO DAILY 05/04/17 08/10/20 History Ezetimibe [Zetia] 10 mg PO DAILY 08/10/20 08/10/20 History Losartan Potassium [Cozaar] 25 mg PO DAILY 08/10/20 08/10/20 History Allergies Allergy/AdvReac Type Severity Reaction Status Date / Time No Known Allergies Allergy Verified 08/10/20 11:12 Physical Exam Vitals: Vital Signs Temp Pulse Resp BP Pulse Ox 08/11/20 08:00 98.1 F 77 16 113/69 94 L 08/11/20 07:46 94 L 08/11/20 04:00 97.1 F L 101 H 16 101/55 96 08/11/20 00:00 97.2 F L 64 16 98/58 96 08/10/20 20:00 98.2 F 64 16 105/55 96 08/10/20 15:21 96.5 F L 120 H 16 116/59 95 08/10/20 15:20 18 Intake and Output 08/10/20 08/11/20 08/11/20 22:59 06:59 14:59 Intake Total 272.382 101.312 25 Balance 272.382 101.312 25 Intake: Intake, IV Titration 152.382 101.312 Amount Diltiazem 125 mg In 92 29 Sodium Chloride 0.9% 100 ml @ 15 MG/HR 15 mls/hr IV .Q8H20M [facility] Rx#: [id number] Heparin Sod,Pork in 0.45% 60.382 72.312 NaCl 25,000 unit In 0.45 % NaCl 1 250ml.bag @ 12 UNITS/KG/HR 8.709 mls/hr IV .Q24H [facility] Rx#: [id number] Oral 120 25 Other: # Voids 1 1 # Bowel Movements 1 Weight 72 kg PHYSICAL EXAMINATION: GENERAL: 74-year-old female in no acute distress at the time of my examination HEENT: Head is atraumatic, normocephalic. Pupils equal, round. Sclera anicteric. Conjunctiva are clear. Mucous membranes of the mouth are moist. Neck is supple. There is no elevated jugular venous pressure. No carotid bruit is heard. HEART EXAMINATION: Heart S1, S2 irregularly irregular . No murmur or gallop heard. CHEST EXAMINATION: Lungs are clear to auscultation and precussion. No chest wall tenderness is noted on palpation or with deep breathing. ABDOMEN: Soft, nontender. Bowel sounds are heard. No organomegaly noted. EXTREMITIES: 2+ peripheral pulses with no evidence of peripheral edema and no calf tenderness noted. NEUROLOGIC patient is awake, alert and oriented 3 . . Results 08/11/20 07:16 08/11/20 07:16 Coagulation 08/10/20 08/11/20 08/11/20 Range/Units 18:18 01:50 07:16 APTT 40.4 H 51.4 H 52.4 H (22.0-30.0) sec CBC 08/11/20 Range/Units 07:16 WBC 4.5 (3.8-10.6) k/uL RBC 3.68 L (3.80-5.40) m/uL Hgb 11.3 L (11.4-16.0) gm/dL Hct 36.2 (34.0-46.0) % Plt Count 256 (150-450) k/uL Comprehensive Metabolic Panel 08/11/20 Range/Units 07:16 Sodium 136 L (137-145) mmol/L Potassium 3.9 (3.5-5.1) mmol/L Chloride 99 (98-107) mmol/L Carbon Dioxide 28 (22-30) mmol/L BUN 13 (7-17) mg/dL Creatinine 0.73 (0.52-1.04) mg/dL Glucose 146 H (74-99) mg/dL Calcium 9.0 (8.4-10.2) mg/dL Current Medications Generic Name Dose Route Start Last Admin Trade Name Freq PRN Reason Stop Dose Admin Acetaminophen 650 mg 08/10/20 11:35 08/10/20 20:10 Acetaminophen Tab 325 Mg Tab PO 650 mg Q6HR PRN Administration Mild Pain or Fever > 100.5 Calcium Carbonate 1 each 08/11/20 09:00 08/11/20 08:49 Calcium Carb-Vit D 500mg-200un 1 Each Tab PO 1 each DAILY JANIYA Administration Cholecalciferol 1,000 unit 08/11/20 09:00 08/11/20 08:49 Cholecalciferol 1,000 Unit Tab PO 1,000 unit DAILY JANIYA Administration Ezetimibe 10 mg 08/11/20 09:00 08/11/20 08:49 Ezetimibe 10 Mg Tab PO 10 mg DAILY J[facility]YA Administration Heparin Sodium (Porcine) 0 unit 08/10/20 11:17 Heparin Sodium,Porcine 5,000 Unit/Ml 1 Ml Vial IV PER PROTOCOL PRN Low PTT Protocol Diltiazem HCl 125 mg/ Sodium 125 mls @ 15 mls/hr 08/10/20 10:15 08/11/20 04:32 Chloride IV 5 mg/hr .Q8H20M JANIYA 5 mls/hr Administration 15 MG/HR Heparin Sodium/Sodium Chloride 250 mls @ 8.709 mls/hr 08/10/20 11:30 08/11/20 02:27 25,000 unit/ Sodium Chloride IV 14 units/kg/hr .Q24H [facility]YA 10.161 mls/hr Titration Protocol 12 UNITS/KG/HR Losartan Potassium 25 mg 08/11/20 09:00 08/11/20 08:49 Losartan 25 Mg Tab PO 25 mg DAILY J[facility]YA Administration Metoprolol Succinate 50 mg 08/11/20 09:00 08/11/20 08:49 Metoprolol Succinate (Er) 50 Mg Tab.Er.24h PO 50 mg DAILY JANIYA Administration Naloxone HCl 0.2 mg 08/10/20 11:35 Naloxone 0.4 Mg/Ml 1 Ml Vial IV Q2M PRN Opioid Reversal Intake and Output 08/10/20 08/11/20 08/11/20 22:59 06:59 14:59 Intake Total 272.382 101.312 25 Balance 272.382 101.312 25 Intake: Intake, IV Titration 152.382 101.312 Amount Diltiazem 125 mg In 92 29 Sodium Chloride 0.9% 100 ml @ 15 MG/HR 15 mls/hr IV .Q8H20M [facility] Rx#: [id number] Heparin Sod,Pork in 0.45% 60.382 72.312 NaCl 25,000 unit In 0.45 % NaCl 1 250ml.bag @ 12 UNITS/KG/HR 8.709 mls/hr IV .Q24H [facility] Rx#: [id number] Oral 120 25 Other: # Voids 1 1 # Bowel Movements 1 Weight 72 kg 08/11/20 07:16 08/11/20 07:16 EKG Interpretations (text) EKG shows atrial flutter with a rapid ventricular response Assessment and Plan Plan: Assessment and plan #1 typical atrial flutter with rapid ventricular response #2 history of atrial flutter in the past, approximately 8 years ago #3 hyperlipidemia #4 hypertension #5 recent left knee arthroplasty in June 2020. #6 daily EtOH use, 2 glasses of wine a day ##7 Mild congestive cardiac failure, likely secondary to atrial flutter with rapid rate, acute, diastolic in nature Plan We will obtain an echocardiogram with Doppler study, if the LV function is normal we will give the patient 600 mg dose of Rythmol in attempts to convert her over to normal sinus rhythm. We will order a TSH as well as increase her beta petey to 50 mg daily. Continue IV heparin, patient also will consider starting Eliquis 2-1/2 mg one tablet by mouth twice a day. Further recommendations will be based on these findings and the patient's overall clinical course. DNP note has been reviewed, I agree with a documented findings and plan of care. Patient was seen and examined.
--- NOTE | 2020-08-11 14:49 | PN ---
PROGRESS NOTE DATE OF SERVICE: 08/11/2020 This is a 74-year-old woman who is admitted with atrial flutter with fast rate, is on Cardizem and also heparin. No chest pain. No palpitations. No fever. Two-D echo with Doppler is pending at this time. PHYSICAL EXAMINATION: Alert and oriented x3, pulse 77, regular. Blood pressure 130/69, respiration 16, temperature 98.1, pulse ox 94% on room. HEENT: Conjunctivae normal. NECK: No jugular venous distension. CARDIOVASCULAR: Heart sounds regular. RESPIRATION: Breath sounds diminished at the bases, a few scattered rhonchi. ABDOMEN: Soft, nontender. LEGS: No edema, no swelling. NERVOUS SYSTEM: No focal deficits. LABS: WBC 4.8, hemoglobin is 11.2, sodium 136. ASSESSMENT: 1. Atrial fibrillation with fast ventricular 2-1 conduction. 2. Hyperlipidemia. 3. History of recent left knee arthroplasty about 5 weeks ago. 4. History of bowel resection. 5. History atrial flutter. 6. Anemia, normocytic anemia of chronic disease, heparin monitoring. 7. Hyponatremia, mild. RECOMMENDATION: Recommend to continue current management and symptomatic treatment. Have a 2D echo with Doppler. Follow closely with Cardiology. Continue with Cardizem. Continue with IV heparin. Prognosis guarded. Further recommendations to follow. MMODL / IJN: [id number] /
[2020-08-11] MEDS: HEPARIN SOD,PORK IN 0.45% NACL 25,000 UNIT in 0.45% NACL 1 250ML.BAG IV SCH (17:00)
--- NOTE | 2020-08-11 17:43 | ECHOF ---
Referral Reason:atrial flutter MEASUREMENTS -------- HEIGHT: 160.0 cm WEIGHT: 71.7 kg BP: 101/55 IVSd: 1.3 cm (0.6 - 1.1) LVIDd: 3.5 cm (3.9 - 5.3) LVPWd: 1.9 cm (0.6 - 1.1) EDV(Teich): 52 ml IVSs: 1.5 cm LVIDs: 3.3 cm LVPWs: 1.7 cm %IVS Thck: 14 % ESV(Teich): 44 ml EF(Teich): 16 % %FS: 7 % SV(Teich): 8 ml LA Diam: 4.8 cm (2.7 - 3.8) RVIDd: 3.1 cm (< 3.3) LALs A4C: 5.6 cm LAAs A4C: 26.4 cm LAESV A-L A4C: 106 ml LAESV MOD A4C: 95 ml LALs A2C: 5.3 cm LAAs A2C: 23.4 cm LAESV A-L A2C: 88 ml LAESV MOD A2C: 85 ml LAESV(A-L): 100 ml LAESV Index (A-L): 56.98 ml/m Ao Diam: 2.5 cm (2.0 - 3.7) AV Cusp: 1.6 cm (1.5 - 2.6) TR Vmax: 2.66 m/s TR maxP.25 mmHg RAP: 10.00 mmHg RVSP: 38.25 mmHg FINDINGS -------- The rhythm appears to be atrial flutter. This was a technically good study. The left ventricular size is normal. There is mild concentric left ventricular hypertrophy. Overa ll left ventricular systolic function is normal with, an EF between 55 - 60 %. Left ventricular keila limg pressure cannot be estimated due to Atrial fibrillation. The right ventricle is normal in size. The left atrium is markedly dilated. LA is severely dilated >40 ml/m2 The right atrial size is normal. The aortic valve is trileaflet, and appears structurally normal. No aortic stenosis or regurgitation. [id number] mitral regurgitation is present. There is mild mitral valve prolapse. Myxomatous changes. Mild tricuspid regurgitation present. There is mild pulmonary hypertension. Trace/mild (physiologic) pulmonic regurgitation. The aortic root size is normal. Echo free space represents a pericardial fat pad. CONCLUSIONS -------- 1. The rhythm appears to be atrial flutter. 2. The left ventricular size is normal. 3. There is mild concentric left ventricular hypertrophy. 4. Overall left ventricular systolic function is normal with, an EF between 55 - 60 %. 5. Left ventricular fillimg pressure cannot be estimated due to Atrial fibrillation. 6. The right ventricle is normal in size. 7. The left atrium is markedly dilated. 8. LA is severely dilated >40 ml/m2 9. The right atrial size is normal. 10. Gxwskpoa-mc-abrohh mitral regurgitation is present. 11. There is mild mitral valve prolapse. 12. Mild tricuspid regurgitation present. 13. There is mild pulmonary hypertension. 14. Trace/mild (physiologic) pulmonic regurgitation. 15. Echo free space represents a pericardial fat pad. MOTOR LODGE CLERK: Yu Zavaleta RDCS
[2020-08-11] MEDS: SODIUM CHLORIDE 0.9% 1,000 ML IV SCH (20:44)
[2020-08-12 07:41] LABS: Basophils % (A) 0 %; Eosinophils # (A) 0.3 k/uL (0-0.7); Eosinophils % (A) 4 %; Hypochromasia Slight; Lymphocytes # (A) 1.5 k/uL (1.0-4.8); Lymphocytes % (A) 24 %; MCH 31.4 pg (25.0-35.0); MCHC 31.5 g/dL (31.0-37.0); MCV 99.6 fL (80.0-100.0); Macrocytosis Slight; Mean Platelet Volume 6.9; Monocytes # (A) 0.4 k/uL (0-1.0); Monocytes % (A) 6 %; Neutrophils # (A) 4.2 k/uL (1.3-7.7); Neutrophils % (A) 65 %; Platelet Count 271 k/uL (150-450); RBC 3.51 m/uL (3.80-5.40); RDW 14.2 % (11.5-15.5); WBC 6.5 k/uL (3.8-10.6)
[2020-08-12 09:00] VITALS: TEMP 98.3
[2020-08-12] MEDS ORDERED: ASPIRIN 81 MG PO SCH (09:00)
[2020-08-12] MEDS: METOPROLOL SUCCINATE (ER) 50 MG TAB.ER.24H PO SCH (09:08)
[2020-08-12] MEDS: EZETIMIBE 10 MG TAB PO SCH (09:09)
[2020-08-12] MEDS: LOSARTAN 25 MG TAB PO SCH (09:09)
[2020-08-12] MEDS: CHOLECALCIFEROL 1,000 UNIT TAB PO SCH (09:09)
[2020-08-12] MEDS: CALCIUM CARB-VIT D 500MG-200UN 1 EACH TAB PO SCH (09:09)
[2020-08-12] MEDS: SODIUM CHLORIDE 0.9% 1,000 ML IV SCH (09:11)
--- NOTE | 2020-08-12 10:13 | P.PN ---
Subjective Progress Note Date: 08/12/20 This is a pleasant 74-year-old female with history of atrial flutter, according to the patient she has not been in atrial flutter for approximately 8 years, hyperlipidemia, nonsmoker, had left knee arthroplasty done in June 2020, she drinks 2 glasses of wine per day. She presented to the hospital on this occasion with symptoms of palpitations and heart racing with associated shortness of breath. According to the patient the symptoms have been going on for approximately one week duration. Her chest x-ray on presentation here showed chronic emphysema with tiny bilateral pleural effusions. CTA of the chest was negative for pulmonary embolism. EKG showed atrial flutter with a 2 to one conduction, heart rate 130s to 140s. Blood pressure 100/50, heart rate in the 120s, respirations 16, 96% on room air. White blood cell count 7.3, hemoglobin 12.0, platelet count 280. Sodium 135, potassium 4.5, chloride 102, CO2 24, BUN 15, creatinine 0.7. Troponin 0.012. BNP 3690. Patient is currently on a Cardizem drip at 5 mg per hour, she also received a dose of IV Lasix times one in the emergency room and had excellent urine output from that. She is currently on IV heparin drip, losartan 25 mg daily and metoprolol 25 mg daily. Patient had been put on Eliquis after her left knee arthroplasty, but she discontinued it on her own because of some leg swelling. She has been hesitant in the past as well to take anticoagulation. She takes a baby aspirin daily I did have a lengthy discussion with the patient regarding stroke prevention. She states that she will consider going back on Eliquis, we will rediscuss this later today. We will order a TSH, increase her dose of beta blo cker, we will also request an echocardiogram with Doppler study be performed. If the patient's LV function is normal we will consider giving the patient 600 mg of Rythmol in attempt to convert her over to normal sinus rhythm. 08/12/2020 Patient was seen and examined this morning, converted to normal sinus rhythm yesterday and remains in normal sinus rhythm. She had an echo cardiac gram with Doppler study performed which revealed a normal left ventricular systolic function with moderate to severe mitral regurgitation. She was given a dose of 600 mg of Rythmol yesterday. I again had a lengthy discussion with the patient this morning regarding being initiated on oral anticoagulation. She only wants to be on an aspirin at this time, she follow-up appointment with her documentation writer next week and we'll discuss Irineo at that time. She does understand her risk for stroke, not being on anticoagulation. Blood pressure 110/60 with a heart rate of 80, 95% on room air. White blood cell count 6.5, hemoglobin 11, platelet count 271. Objective - Vital Signs Vital signs: Vital Signs Temp 98.3 F 08/12/20 08:00 Pulse 86 08/12/20 08:00 Resp 18 08/12/20 08:00 BP 111/57 08/12/20 08:00 Pulse Ox 95 08/12/20 08:00 Intake & Output 08/11/20 08/12/20 08/12/20 18:59 06:59 18:59 Intake Total 382.306 100 240 Output Total 600 Balance 382.306 -500 240 Weight 72 kg Intake: Intake, IV Titration 117.306 Amount Heparin Sod,Pork in 0.45% 117.306 NaCl 25,000 unit In 0.45 % NaCl 1 250ml.bag @ 12 UNITS/KG/HR 8.709 mls/hr IV .Q24H [facility] Rx#: [id number] Oral 265 100 240 Output: Urine/Stool Mix 600 Other: Voiding Method Toilet Toilet # Voids 4 1 # Bowel Movements 1 - Exam PHYSICAL EXAMINATION: GENERAL: 74-year-old female in no acute distress at the time of my examination HEENT: Head is atraumatic, normocephalic. Pupils equal, round. Sclera an icteric. Conjunctiva are clear. Mucous membranes of the mouth are moist. Neck is supple. There is no elevated jugular venous pressure. No carotid bruit is heard. HEART EXAMINATION: Heart S1, S2 systolic murmur is heard . CHEST EXAMINATION: Lungs are clear to auscultation and precussion. No chest wall tenderness is noted on palpation or with deep breathing. ABDOMEN: Soft, nontender. Bowel sounds are heard. No organomegaly noted. EXTREMITIES: 2+ peripheral pulses with no evidence of peripheral edema and no calf tenderness noted. NEUROLOGIC patient is awake, alert and oriented 3 . - Labs CBC & Chem 7: 08/12/20 07:10 08/11/20 07:16 Labs: Abnormal Lab Results - Last 24 Hours (Table) 08/12/20 08/12/20 Range/Units 07:10 07:10 RBC 3.51 L (3.80-5.40) m/uL Hgb 11.0 L (11.4-16.0) gm/dL APTT 49.3 H (22.0-30.0) sec Assessment and Plan Plan: Assessment and plan #1 typical atrial flutter with rapid ventricular response #2 history of atrial flutter in the past, approximately 8 years ago #3 hyperlipidemia #4 hypertension #5 recent left knee arthroplasty in June 2020. #6 daily EtOH use, 2 glasses of wine a day ##7 Mild congestive cardiac failure, likely secondary to atrial flutter with rapid rate, acute, diastolic in nature #8 moderate to severe mitral regurgitation Plan We will discontinue the IV heparin today and start the patient back on a baby aspirin. I did have a lengthy discussion with the patient regarding the importance of anticoagulation for stroke prevention however she wishes at this time to take a baby with aspirin only and discuss further with her documentation writer at her follow-up appointment next week. We will continue the metoprolol 50 mg daily. She may be able to be discharged home from our perspective, as mentioned she does have a follow-up appointment with her documentation writer next week. DNP note has been reviewed, I agree with a documented findings and plan of care. Patient was seen and examined.
[2020-08-12 11:34] VITALS: BP 122/65; PULSE 68; RESP 16
--- NOTE | 2020-08-12 23:14 | DS ---
DISCHARGE SUMMARY DATE OF SERVICE: 08/12/2020 FINAL DIAGNOSES: 1. Atrial flutter with fast ventricular rate, 2:1 AV conduction. 2. Hyperlipidemia. 3. History of recent left total knee arthroplasty about 5 years ago. 4. History of bowel resection. 5. History of atrial flutter. 6. Anemia, normocytic anemia of chronic disease. 7. Heparin monitoring. 8. Hyponatremia, mild. DISCHARGE DISPOSITION: The patient will be discharged in stable condition with guarded prognosis. HISTORY OF PRESENT ILLNESS: This 74-year-old woman with a past medical history of multiple medical problems was admitted with atrial flutter with a fast ventricular rate, 2:1 conduction. The patient was treated symptomatically with Cardizem and heparin. Patient improved significantly. Two-D echo showed normal ejection fraction, LA dilated. 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 The patient is followed by Dr. Manning in the outpatient setting. On exam, vitals are stable. CARDIOVASCULAR SYSTEM: S1, S2 irregular. Ejection systolic murmur. ABDOMEN: Soft. NERVOUS SYSTEM: No focal deficit. DISCHARGE ADVICE AND MEDICATIONS: 1. Diet is cardiac. 2. Activity limited until followup. 3. Follow up with Dr. Manning in 1-2 days. 4. Follow up with Cardiology as recommended. 5. Ecotrin 162 mg p.o. daily. 6. Calcium 600 mg daily. 7. Cozaar 25 mg daily. 8. Vitamin B complex 1 p.o. daily. 9. Metoprolol 50 mg p.o. daily. 10.Zetia 10 mg daily. 11.Vitamin D3 daily. Once again, the patient will be discharged in stable condition with guarded prognosis. MMODL / IJN: [id number] /
--- NOTE | 2020-08-14 02:09 | CDI ---
Documentation Clarification Form Date: 08/14/2020 From: John Carballo Phone: If you have a question about this query, please contact Anamaria Franks Director Of Revenue at [phone] between 8am and 5pm. Admit Date: 08/10/2020 Discharge Date: 08/12/2020 Patient Name: Julia Monroe Visit Number: [id number] ATTENTION: The Clinical Documentation Specialists (CDI) and [facility] Coding Staff appreciate your assistance in clarifying documentation. Please respond to the clarification below the line at the bottom and electronically sign. The CDI & [facility] Coding staff will review the response and follow-up if needed. Please note: Queries are made part of the Legal Health Record. If you have any questions, please contact the author of this message via ITS. Dear Dr Isaac Mcgee MD., CHF is documented in Dr. Sacha Denny notes "Mild congestive cardiac failure, likely secondary to atrial flutter with rapid rate, acute, diastolic in nature" . History/Risk Factors:CAD, Hyperlipidemia, Anemia, Atrial flutter VS/Pulse OX: Temperature 98.1 F 98.0 F Pulse Rate 129 H 129 H 125 H Respiratory 18 16 17 Rate Blood Pressure 124/84 128/99 135/86 O2 Sat by Pulse 99 95 99 BNP:[id number] Echocardiogram Results:Overall left ventricular systolic function is normal with, an EF between 55- 60 %. Chest X Ray: Chronic emphysematous change with tiny bilateral pleural effusions and patchy left basilar acute atelectasis and/or infiltrate. Treatment: IV Lasix. In your professional opinion, can you please clarify the acuity and type of CHF if known? Diastolic Heart Failure: Acute Chronic Acute on Chronic Unable to Determine Other, please specify MTDD
== END 2020-08-12 16:06 | disposition home or self-care (01) | DRG 308 ==
LOC: EC 09:41 → 3SCARD 11:35
PROVIDERS: ADMIT Internal Medicine; ATTEND Internal Medicine
DX: I48.3 Typical atrial flutter (principal); I50.31 Acute diastolic (congestive) heart failure; E87.1 Hypo-osmolality and hyponatremia; I25.10 Atherosclerotic heart disease of native coronary artery without angina pectoris; E78.5 Hyperlipidemia, unspecified; Z96.652 Presence of left artificial knee joint; I11.0 Hypertensive heart disease with heart failure; J43.9 Emphysema, unspecified; D63.8 Anemia in other chronic diseases classified elsewhere; F17.200 Nicotine dependence, unspecified, uncomplicated; I34.0 Nonrheumatic mitral (valve) insufficiency; Z79.01 Long term (current) use of anticoagulants; Z79.82 Long term (current) use of aspirin; Z79.899 Other long term (current) drug therapy; Z90.710 Acquired absence of both cervix and uterus; Z90.49 Acquired absence of other specified parts of digestive tract; Z87.19 Personal history of other diseases of the digestive system; Z87.11 Personal history of peptic ulcer disease; Z98.890 Other specified postprocedural states; Z87.440 Personal history of urinary (tract) infections; Z81.8 Family history of other mental and behavioral disorders
CPT/HCPCS: 36415; 71046; 71275; 80048; 80053; 83735; 83880; 84443; 84484; 85025; 85610; 85730; 87324; 93005; 93306; 94760; 96365; 96366; 96375; 96376; 99291

== ENCOUNTER 2021-06-18 23:34 | Emergency (ER) | payer MEDICARE ==
--- NOTE | 2021-06-19 00:21 | ED ---
Arrhythmia/Palpitations HPI - General Chief Complaint: Arrhythmia/Palpitations Stated Complaint: Tachycardia Time Seen by Provider: 06/18/21 23:52 Source: patient, EMS Mode of arrival: EMS Limitations: no limitations - History of Present Illness Initial Comments: This patient is 75-year-old woman who presents with the complaint that "my heart rate was through the roof," patient states that she has had previous episodes of palpitations. This episode occurred at rest. She did have some accompanying shortness of breath and therefore called the ambulance. Was reported that when she was initially placed on personnel monitor showed a rate in the 150s, but she had rapid resolution of her symptoms. She states that she asked the EMS personnel if she could stay home as her heart rate had gone back to normal but they recommended that she be seen here. The patient's denying any palpitations now. No chest pain. No dyspnea. No diaphoresis, nausea or vomiting. MD Complaint: rapid heart beat -: minutes(s) Context: occurred during rest Associated Symptoms: shortness of breath - Related Data Home Medications Medication Instructions Recorded Confirmed Aspirin 162 mg PO DAILY 05/04/17 08/10/20 Calcium Carbonate [Calcium] 1,200 mg PO DAILY 05/04/17 08/10/20 Cholecalciferol [Vitamin D3 (25 1,000 unit PO DAILY 05/04/17 08/10/20 Mcg = 1000 Iu)] Vitamin B Complex 1 tab PO DAILY 05/04/17 08/10/20 Ezetimibe [Zetia] 10 mg PO DAILY 08/10/20 08/10/20 Losartan Potassium [Cozaar] 25 mg PO DAILY 08/10/20 08/10/20 Apixaban [Eliquis] BID 06/19/21 Sotalol [Betapace] 80 mg PO BID 06/19/21 06/19/21 Vitamin E 400 unit PO 06/19/21 Previous Rx's Medication Instructions Recorded Metoprolol Succinate (ER) [Toprol 50 mg PO DAILY #30 tab.er.24h 08/12/20 XL] Allergies Allergy/AdvReac Type Severity Reaction Status Date / Time No Known Allergies Allergy Verified 08/10/20 11:12 Review of Systems ROS Statement: Those systems with pertinent positive or pertinent negative responses have been documented in the HPI. ROS Other: All systems not noted in ROS Statement are negative. Constitutional: Denies: fever, chills Respiratory: Reports: as per HPI, dyspnea. Denies: cough, wheezes Cardiovascular: Reports: palpitations. 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 History of Any Multi-Drug Resistant Organisms: None Reported Past Surgical History: Bowel Resection, Ear Surgery, Heart Catheterization, Hysterectomy, Joint Replacement, Orthopedic Surgery Additional Past Surgical History / Comment(s): 06/2020 L knee arthroplasty, L knee arthroscopy, EGD, colonoscopies and had bowel tear (tissue was thin) then had bowel resection, L ear surgery, D&Cs. Additional Past Anesthesia/Blood Transfusion Reaction / Comment(s): Pt states she is sensitive to anesthetic medications. Past Psychological History: No Psychological Hx Reported Smoking Status: Current some day smoker, Light tobacco smoker Past Alcohol Use History: Daily Past Drug Use History: None Reported - Past Family History Father History Unknown: Yes Additional Family Medical History / Comment(s): Father young from suicide. Mother Family Medical History: No Reported History General Exam Limitations: no limitations General appearance: alert, in no apparent distress Head exam: Present: atraumatic, normocephalic Eye exam: Present: normal appearance. Absent: scleral icterus, conjunctival injection Respiratory exam: Present: normal lung sounds bilaterally. Absent: respiratory distress, wheezes, rales, rhonchi, stridor Cardiovascular Exam: Present: regular rate, normal rhythm, systolic murmur. Absent: diastolic murmur, rubs, gallop GI/Abdominal exam: Present: soft. Absent: distended, tenderness, guarding, rebound, rigid, mass Extremities exam: Present: normal inspection, normal capillary refill. Absent: pedal edema, calf tenderness Back exam: Present: normal inspection. Absent: CVA tenderness (R), CVA tenderness (L) Neurological exam: Present: alert Skin exam: Present: warm, dry, intact, normal color. Absent: rash Course Vital Signs 06/18/21 06/19/21 06/19/21 23:45 01:13 02:43 Pulse Rate 65 65 Pulse Rate [ 67 Warehouse Processor ] Respiratory 18 18 Rate Blood Pressure 126/74 143/89 O2 Sat by Pulse 96 97 Oximetry EKG Findings - EKG Results: EKG: interpreted by STEWART, sinus rhythm (Rate 67 bpm), normal axis, normal QRS, normal ST/T - Blocks, [place], Hypertrophy, ST Abn: AV and intraventricular conduction: 1 AV block Medical Decision Making - Medical Decision Making I reviewed the results with the patient who states she would like to go home. She is not having any symptoms. Discussed that there is chance of missed dangerous arrhythmia, patient understands. 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 She will return here if she develops any recurrence of symptoms or any new symptoms. - Lab Data Result diagrams: 06/18/21 23:50 06/18/21 23:50 Lab Results 06/18/21 06/18/21 06/18/21 Range/Units 23:50 23:50 23:50 WBC 5.4 (3.8-10.6) k/uL RBC 3.94 (3.80-5.40) m/uL Hgb 12.9 (11.4-16.0) gm/dL Hct 38.4 (34.0-46.0) % MCV 97.4 (80.0-100.0) fL MCH 32.8 (25.0-35.0) pg MCHC 33.7 (31.0-37.0) g/dL RDW 14.0 (11.5-15.5) % Plt Count 222 (150-450) k/uL MPV 8.1 Neutrophils % 48 % Lymphocytes % 37 % Monocytes % 8 % Eosinophils % 3 % Basophils % 1 % Neutrophils # 2.6 (1.3-7.7) k/uL Lymphocytes # 2.0 (1.0-4.8) k/uL Monocytes # 0.5 (0-1.0) k/uL Eosinophils # 0.1 (0-0.7) k/uL Basophils # 0.0 (0-0.2) k/uL PT 10.1 (9.0-12.0) sec INR 0.9 (<1.2) APTT 23.2 (22.0-30.0) sec Sodium 138 (137-145) mmol/L Potassium 4.0 (3.5-5.1) mmol/L Chloride 103 (98-107) mmol/L Carbon Dioxide 24 (22-30) mmol/L Anion Gap 11 mmol/L BUN 22 H (7-17) mg/dL Creatinine 0.76 (0.52-1.04) mg/dL Est GFR (CKD-EPI)AfAm 89 (>60 ml/min/1.73 sqM) Est GFR (CKD-EPI)NonAf 77 (>60 ml/min/1.73 sqM) Glucose 98 (74-99) mg/dL Calcium 9.5 (8.4-10.2) mg/dL Magnesium 1.8 (1.6-2.3) mg/dL Total Bilirubin <0.1 L (0.2-1.3) mg/dL AST 30 (14-36) U/L ALT 21 (4-34) U/L Alkaline Phosphatase 94 (38-126) U/L Troponin I (0.000-0.034) ng/mL Total Protein 6.6 (6.3-8.2) g/dL Albumin 4.0 (3.5-5.0) g/dL 06/18/21 Range/Units 23:50 WBC (3.8-10.6) k/uL RBC (3.80-5.40) m/uL Hgb (11.4-16.0) gm/dL Hct (34.0-46.0) % MCV (80.0-100.0) fL MCH (25.0-35.0) pg MCHC (31.0-37.0) g/dL RDW (11.5-15.5) % Plt Count (150-450) k/uL MPV Neutrophils % % Lymphocytes % % Monocytes % % Eosinophils % % Basophils % % Neutrophils # (1.3-7.7) k/uL Lymphocytes # (1.0-4.8) k/uL Monocytes # (0-1.0) k/uL Eosinophils # (0-0.7) k/uL Basophils # (0-0.2) k/uL PT (9.0-12.0) sec INR (<1.2) APTT (22.0-30.0) sec Sodium (137-145) mmol/L Potassium (3.5-5.1) mmol/L Chloride (98-107) mmol/L Carbon Dioxide (22-30) mmol/L Anion Gap mmol/L BUN (7-17) mg/dL Creatinine (0.52-1.04) mg/dL Est GFR (CKD-EPI)AfAm (>60 ml/min/1.73 sqM) Est GFR (CKD-EPI)NonAf (>60 ml/min/1.73 sqM) Glucose (74-99) mg/dL Calcium (8.4-10.2) mg/dL Magnesium (1.6-2.3) mg/dL Total Bilirubin (0.2-1.3) mg/dL AST (14-36) U/L ALT (4-34) U/L Alkaline Phosphatase (38-126) U/L Troponin I <0.012 (0.000-0.034) ng/mL Total Protein (6.3-8.2) g/dL Albumin (3.5-5.0) g/dL Disposition Clinical Impression: Palpitations Disposition: HOME SELF-CARE Condition: Good Instructions (If sedation given, give patient instructions): Heart Palpitations (ED) Is patient prescribed a controlled substance at d/c from ED?: No Referrals: Leslie Manning MD [Primary Care Provider] - 1-2 days
[2021-06-19 01:02] LABS: Basophils % (A) 1 %; Eosinophils # (A) 0.1 k/uL (0-0.7); Eosinophils % (A) 3 %; HCT 38.4 % (34.0-46.0); HGB 12.9 gm/dL (11.4-16.0); Lymphocytes % (A) 37 %; MCH 32.8 pg (25.0-35.0); MCHC 33.7 g/dL (31.0-37.0); MCV 97.4 fL (80.0-100.0); Mean Platelet Volume 8.1; Monocytes # (A) 0.5 k/uL (0-1.0); Monocytes % (A) 8 %; Neutrophils # (A) 2.6 k/uL (1.3-7.7); Neutrophils % (A) 48 %; Platelet Count 222 k/uL (150-450); RBC 3.94 m/uL (3.80-5.40); WBC 5.4 k/uL (3.8-10.6)
--- NOTE | 2021-06-19 01:05 | XR ---
EXAMINATION TYPE: XR chest 1V portable DATE OF EXAM: 06/19/2021 COMPARISON: 08/10/2020 HISTORY: Dysrhythmia TECHNIQUE: FINDINGS: Heart and mediastinum are normal. Lungs are clear. Diaphragm is normal. Bony thorax appears normal. There are chest leads. IMPRESSION: Normal chest. No adverse change. There is clearing of the small pleural effusions compare d to old exam.
[2021-06-19 01:12] LABS: INR 0.9 (<1.2); Partial Thromboplastin Time 23.2 sec (22.0-30.0); Prothrombin Time 10.1 sec (9.0-12.0)
[2021-06-19 01:14] VITALS: RESP 18
[2021-06-19 01:15] LABS: ALT 21 U/L (4-34); AST 30 U/L (14-36); African American GFR (CKD) 89 (>60 ml/min/1.73 sqM); Alkaline Phosphatase 94 U/L (38-126); Anion Gap 11 mmol/L; Blood Urea Nitrogen 22 mg/dL (7-17); Calcium 9.5 mg/dL (8.4-10.2); Carbon Dioxide 24 mmol/L (22-30); Chloride 103 mmol/L (98-107); Glucose 98 mg/dL (74-99); Magnesium 1.8 mg/dL (1.6-2.3); Non-African American GFR(CKD) 77 (>60 ml/min/1.73 sqM); Sodium 138 mmol/L (137-145); Total Bilirubin <0.1 mg/dL (0.2-1.3); Total Protein 6.6 g/dL (6.3-8.2)
[2021-06-19 02:44] VITALS: BP 143/89; PULSE 65
== END 2021-06-19 02:44 | disposition home or self-care (01) ==
LOC: EC 23:34
DX: R00.2 Palpitations (principal); R06.02 Shortness of breath; R00.0 Tachycardia, unspecified; E78.5 Hyperlipidemia, unspecified; F17.210 Nicotine dependence, cigarettes, uncomplicated; Z87.11 Personal history of peptic ulcer disease; Z87.440 Personal history of urinary (tract) infections; Z79.01 Long term (current) use of anticoagulants; Z79.82 Long term (current) use of aspirin; Z79.899 Other long term (current) drug therapy
CPT/HCPCS: 36415; 71045; 80053; 83735; 84484; 85025; 85610; 85730; 93005; 99285

== ENCOUNTER → 2021-06-22 | Outpatient (CLI) | payer MEDICARE ==
[2021-06-22 14:50] LABS: Basophils # (A) 0.02 X 10*3/uL (0.00-0.10); Basophils % (A) 0.3 %; Eosinophils % (A) 1.7 %; HCT 38.8 % (37.2-46.3); HGB 12.5 g/dL (12.0-15.0); Lymphocytes # (A) 1.78 X 10*3/uL (0.90-5.00); Lymphocytes % (A) 30.5 %; MCH 31.7 pg (27.0-32.0); MCHC 32.2 g/dL (32.0-37.0); MCV 98.5 fL (80.0-97.0); Mean Platelet Volume 9.7 fL (9.5-12.2); Monocytes # (A) 0.65 X 10*3/uL (0.20-1.00); Monocytes % (A) 11.1 %; Neutrophils # (A) 3.26 X 10*3/uL (1.80-7.70); Neutrophils % (A) 56.1 %; Platelet Count 222 X 10*3/uL (140-440); RBC 3.94 X 10*6/uL (4.10-5.20); RDW 14.6 % (11.5-14.5); WBC 5.83 X 10*3/uL (4.50-10.00)
[2021-06-22 18:43] LABS: African American GFR (CKD) 83.6 (60.0-200.0); Anion Gap 10.5 mmol/L (4.00-12.00); BUN/Creat Ratio 32.5 Ratio (12.00-20.00); Calcium 9.3 mg/dL (8.7-10.3); Carbon Dioxide 26.5 mmol/L (21.6-31.8); Non-African American GFR(CKD) 72.1 (60.0-200.0)
== END | disposition home or self-care (01) ==
LOC: LABWHC1 10:00
PROVIDERS: ATTEND Internal Medicine Cardiovascular Disease
DX: I48.0 Paroxysmal atrial fibrillation (principal)
CPT/HCPCS: 36415; 80048; 85025

== ENCOUNTER 2022-02-16 17:34 | Observation (INO) | payer MEDICARE ==
[2022-02-16] MEDS ORDERED: ADENOSINE 3 MG/ML 2 ML VIAL IVP STA (18:04)
--- NOTE | 2022-02-16 18:10 | ED ---
General Adult HPI - General Chief complaint: Chest Pain Stated complaint: AFib Time Seen by Provider: 02/16/22 17:40 Source: patient, RN notes reviewed, old records reviewed Mode of arrival: wheelchair - History of Present Illness Initial comments: This is a 70-year-old female presents emergency department with past medical history significant for atrial fibrillation and atrial flutter. Patient states she's on eliquis and is supposed to get ablated on March 02. Patient comes in today because at 3:00 this afternoon she started feeling her heart race. Patient denies any chest pain but denies shortness of breath. Patient denies any lightheadedness or dizziness. Patient denies headache patient denies numbness weakness. Patient denies any recent fever chills or cough. Patient states she's never heard the term SVT. Patient denies any abdominal pain patient denies nausea vomiting diarrhea. - Related Data Home Medications Medication Instructions Recorded Confirmed Calcium Carbonate [Calcium] 1,200 mg PO BID 05/04/17 02/16/22 Ezetimibe [Zetia] 10 mg PO DAILY 08/10/20 02/16/22 Apixaban [Eliquis] 5 mg PO BID 06/19/21 02/16/22 Sotalol [Betapace] 80 mg PO DAILY 06/19/21 02/16/22 Cholecalciferol [Vitamin D3 (25 25 mcg PO BID 02/16/22 02/16/22 Mcg = 1000 Iu)] Furosemide [Lasix] 20 mg PO DAILY PRN 02/16/22 02/16/22 Sotalol [Betapace] 40 mg PO HS 02/16/22 02/16/22 dilTIAZem HCL 30 mg PO BID 02/16/22 02/16/22 Allergies Allergy/AdvReac Type Severity Reaction Status Date / Time No Known Allergies Allergy Verified 02/16/22 19:27 Review of Systems ROS Statement: Those systems with pertinent positive or pertinent negative responses have been documented in the HPI. ROS Other: All systems not noted in ROS Statement are negative. 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 History of Any Multi-Drug Resistant Organisms: None Reported Past Surgical History: Bowel Resection, Ear Surgery, Heart Catheterization, Hysterectomy, Joint Replacement, Orthopedic Surgery Additional Past Surgical History / Comment(s): 06/2020 L knee arthroplasty, L knee arthroscopy, EGD, colonoscopies and had bowel tear (tissue was thin) then had bowel resection, L ear surgery, D&Cs. Additional Past Anesthesia/Blood Transfusion Reaction / Comment(s): Pt states she is sensitive to anesthetic medications. Past Psychological History: No Psychological Hx Reported Smoking Status: Current some day smoker, Light tobacco smoker Past Alcohol Use History: Daily Past Drug Use History: None Reported - Past Family History Father History Unknown: Yes Additional Family Medical History / Comment(s): Father young from suicide. Mother Family Medical History: No Reported History General Exam - General Exam Comments Initial Comments: GENERAL: Patient is well-developed and well-nourished. Patient is nontoxic and well- hydrated and is in mild distress. ENT: Neck is soft and supple. No significant lymphadenopathy is noted. Oropharynx is clear. Moist mucous membranes. Neck has full range of motion without elicit ing any pain. EYES: The sclera were anicteric and conjunctiva were pink and moist. Extraocular mo vements were intact and pupils were equal round and reactive to light. Eyelids were unremarkable. PULMONARY: Unlabored respirations. Good breath sounds bilaterally. No audible rales rhonchi or wheezing was noted. CARDIOVASCULAR: Patient is tachycardic at about 170 bpm it is a regular rhythm. ABDOMEN: Soft and nontender with normal bowel sounds. No palpable organomegaly was noted. There is no palpable pulsatile mass. SKIN: Skin is clear with no lesions or rashes and otherwise unremarkable. NEUROLOGIC: Patient is alert and oriented x3. Cranial nerves II through XII are grossly intact. Motor and sensory are also intact. Normal speech, volume and content. Symmetrical smile. MUSCULOSKELETAL: Normal extremities with adequate strength and full range of motion. No lower extremity swelling or edema. No calf tenderness. LYMPHATICS: No significant lymphadenopathy is noted PSYCHIATRIC: Normal psychiatric evaluation. Course Vital Signs 02/16/22 02/16/22 02/16/22 17:38 17:48 19:54 Temperature 97.1 F L Pulse Rate 169 H 86 Pulse Rate [ 165 H Athlete Marketing Agent ] Respiratory 18 18 Rate Blood Pressure 128/90 138/86 O2 Sat by Pulse 99 99 Oximetry 02/16/22 20:47 Temperature Pulse Rate 81 Pulse Rate [ Athlete Marketing Agent ] Respiratory 18 Rate Blood Pressure 132/75 O2 Sat by Pulse 96 Oximetry Medical Decision Making - Medical Decision Making EKG shows atrial flutter at 160 bpm QRS is 86 Q-T intervals 275 QTC is 367. Patient's EKG shows no ST segment elevation or depression. Patient was given adenosine slowed her heart down and it look like the patient was having flutter waves and at this point time I started her on Cardizem. I gave the patient a bolus of Cardizem which slowed down considerably. EKG was done shows atrial fibrillation with rapid ventricular response at 112 bpm QRS is 94 QT interval 351 QTC is 418. Patient's EKG shows no ST segment elevation or depression. I spoke with Dr. Cespedes he agreed to admit the patient admitted the patient wrote admitting orders - Lab Data Result diagrams: 02/16/22 19:12 02/16/22 19:52 Lab Results 02/16/22 02/16/22 02/16/22 Range/Units 19:12 19:12 19:12 WBC 8.2 (3.8-10.6) k/uL RBC 4.30 (3.80-5.40) m/uL Hgb 14.0 (11.4-16.0) gm/dL Hct 42.2 (34.0-46.0) % MCV 98.1 (80.0-100.0) fL MCH 32.5 (25.0-35.0) pg MCHC 33.1 (31.0-37.0) g/dL RDW 14.0 (11.5-15.5) % Plt Count 227 (150-450) k/uL MPV 7.9 Neutrophils % 57 % Lymphocytes % 31 % Monocytes % 7 % Eosinophils % 2 % Basophils % 1 % Neutrophils # 4.7 (1.3-7.7) k/uL Lymphocytes # 2.5 (1.0-4.8) k/uL Monocytes # 0.6 (0-1.0) k/uL Eosinophils # 0.2 (0-0.7) k/uL Basophils # 0.0 (0-0.2) k/uL PT 10.8 (9.0-12.0) sec INR 1.0 (<1.2) APTT 24.5 (22.0-30.0) sec Sodium (137-145) mmol/L Potassium (3.5-5.1) mmol/L Chloride (98-107) mmol/L Carbon Dioxide (22-30) mmol/L Anion Gap mmol/L BUN (7-17) mg/dL Creatinine (0.52-1.04) mg/dL Est GFR (CKD-EPI)AfAm (>60 ml/min/1.73 sqM) Est GFR (CKD-EPI)NonAf (>60 ml/min/1.73 sqM) Glucose (74-99) mg/dL Calcium (8.4-10.2) mg/dL Magnesium (1.6-2.3) mg/dL Total Bilirubin (0.2-1.3) mg/dL AST (14-36) U/L ALT (4-34) U/L Alkaline Phosphatase (38-126) U/L Troponin I 0.016 (0.000-0.034) ng/mL Total Protein (6.3-8.2) g/dL Albumin (3.5-5.0) g/dL 02/16/22 Range/Units 19:52 WBC (3.8-10.6) k/uL RBC (3.80-5.40) m/uL Hgb (11.4-16.0) gm/dL Hct (34.0-46.0) % MCV (80.0-100.0) fL MCH (25.0-35.0) pg MCHC (31.0-37.0) g/dL RDW (11.5-15.5) % Plt Count (150-450) k/uL MPV Neutrophils % % Lymphocytes % % Monocytes % % Eosinophils % % Basophils % % Neutrophils # (1.3-7.7) k/uL Lymphocytes # (1.0-4.8) k/uL Monocytes # (0-1.0) k/uL Eosinophils # (0-0.7) k/uL Basophils # (0-0.2) k/uL PT (9.0-12.0) sec INR (<1.2) APTT (22.0-30.0) sec Sodium 136 L (137-145) mmol/L Potassium 4.1 (3.5-5.1) mmol/L Chloride 104 (98-107) mmol/L Carbon Dioxide 22 (22-30) mmol/L Anion Gap 10 mmol/L BUN 20 H (7-17) mg/dL Creatinine 0.76 (0.52-1.04) mg/dL Est GFR (CKD-EPI)AfAm 89 (>60 ml/min/1.73 sqM) Est GFR (CKD-EPI)NonAf 77 (>60 ml/min/1.73 sqM) Glucose 117 H (74-99) mg/dL Calcium 9.1 (8.4-10.2) mg/dL Magnesium 1.7 (1.6-2.3) mg/dL Total Bilirubin 0.5 (0.2-1.3) mg/dL AST 33 (14-36) U/L ALT 39 H (4-34) U/L Alkaline Phosphatase 93 (38-126) U/L Troponin I (0.000-0.034) ng/mL Total Protein 6.7 (6.3-8.2) g/dL Albumin 3.9 (3.5-5.0) g/dL Critical Care Time Critical Care Time: Yes Total Critical Care Time: 35 Disposition Clinical Impression: Atrial fibrillation with rapid ventricular response Disposition: ADMITTED IP TO THIS HOSP
[2022-02-16] MEDS ORDERED: DILTIAZEM DRIP BOLUS FROM BAG 1 MG SOLN IV ONE (18:14)
[2022-02-16] MEDS ORDERED: DILTIAZEM 125 MG in SODIUM CHLORIDE 0.9% 100 ML IV SCH (18:15)
[2022-02-16 19:22] LABS: Basophils % (A) 1 %; Eosinophils # (A) 0.2 k/uL (0-0.7); Eosinophils % (A) 2 %; HCT 42.2 % (34.0-46.0); Lymphocytes # (A) 2.5 k/uL (1.0-4.8); Lymphocytes % (A) 31 %; MCH 32.5 pg (25.0-35.0); MCHC 33.1 g/dL (31.0-37.0); MCV 98.1 fL (80.0-100.0); Mean Platelet Volume 7.9; Monocytes # (A) 0.6 k/uL (0-1.0); Monocytes % (A) 7 %; Neutrophils # (A) 4.7 k/uL (1.3-7.7); Neutrophils % (A) 57 %; Platelet Count 227 k/uL (150-450); WBC 8.2 k/uL (3.8-10.6)
--- NOTE | 2022-02-16 19:29 | XR ---
EXAMINATION TYPE: XR chest 2V DATE OF EXAM: 02/16/2022 7:12 PM COMPARISON:Multiple radiographs, with the most recent on 06/19/2021 TECHNIQUE: XR chest 2V Frontal and lateral views of the chest. CLINICAL INDICATION:Female, 76 years old with history of Chest Pain; FINDINGS: Lungs/Pleura: There is flattening of the diaphragm with increased lucency of the lungs. No evidence o f pneumothorax, pleural effusion or focal consolidation. Pulmonary vascularity: Unremarkable. Heart/mediastinum: Cardiomediastinal silhouette is unremarkable. A loop recorder projects over the le ft thorax over the heart. Musculoskeletal: Multiple level degenerative disc disease changes seen throughout the spine. IMPRESSION: 1. No acute cardiopulmonary disease process. 2. COPD changes.
[2022-02-16 19:32] LABS: Partial Thromboplastin Time 24.5 sec (22.0-30.0); Prothrombin Time 10.8 sec (9.0-12.0)
[2022-02-16 20:13] LABS: Albumin 3.9 g/dL (3.5-5.0); Calcium 9.1 mg/dL (8.4-10.2); Magnesium 1.7 mg/dL (1.6-2.3); Potassium 4.1 mmol/L (3.5-5.1); Total Bilirubin 0.5 mg/dL (0.2-1.3); Total Protein 6.7 g/dL (6.3-8.2)
[2022-02-16] MEDS ORDERED: NITROGLYCERIN SL TABS 0.4 MG TAB SUBLINGUAL PRN (20:25)
[2022-02-16] MEDS: APIXABAN 5 MG TAB PO SCH (23:36)
--- NOTE | 2022-02-17 07:51 | P.HPIM ---
History of Present Illness This is a pleasant 76 years old female with past medical history of atrial fibrillation, on Eliquis, hyperlipidemia, hypertension. She is following up with hospital insurance clerk Dr. Quershi at [facility], she underwent EP ablation study on November [address] Hazel hospital insurance clerk and she supposed to follow up with him on February for the second part, as per patient and her hospital insurance clerk wanted to increase her Cardizem HE did not because of her borderline blood pressure, Yesterday she was not feeling well about 3:00 in the afternoon she started to have palpitation and some achy feeling, she checked her heart rate was 170 and systolic blood pressure was 110, she took one extra dose of metoprolol with no benefit so she decided to come to the emergency room. Currently she feels fine after she was started on Cardizem drip. She denies chest pain or any other symptoms She denies any dysuria, no GI or neurological symptoms. No fever. She denies smoking, she drinks alcohol about twice per week, mainly wine. No illicit tracts On admission she was tachycardic with heart rate 165. Currently heart rate is better controlled at 85. Labs including CBC, BMP, liver enzymes are unremarkable. INR is normal 1.0. Troponin are negative times 30.016, 0.018, 0.026. EKG showing atrial fibrillation with a rate of 112 QTC 418, another EKG showing ventricular rate of 168. Chest x-ray: No acute process. COPD changes On admission she is currently started on Cardizem drip. After 80 5 mg/h. Review of Systems Review of systems CONSTITUTIONAL: No fever, no malaise, no fatigue. HEENT: No recent visual problems or hearing problems. Denied any sore throat. CARDIOVASCULAR: No orthopnea, PND, no palpitations, no syncope. PULMONARY: No shortness of breath, no cough, no hemoptysis. GASTROINTESTINAL: No diarrhea, no nausea, no vomiting, no abdominal pain. Normoactive bowel sounds. NEUROLOGICAL: No headaches, no weakness, no numbness. HEMATOLOGICAL: Denies any bleeding or petechiae. GENITOURINARY: Denies any burning micturition, frequency, or urgency. MUSCULOSKELETAL/RHEUMATOLOGICAL: Denies any joint pain, swelling, or any muscle pain. ENDOCRINE: Denies any polyuria or polydipsia. 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 Past Anesthesia/Blood Transfusion Reactions: No Reported Reaction Additional Past Anesthesia/Blood Transfusion Reaction / Comment(s): Pt states she is sensitive to anesthetic medications. Past Psychological History: No Psychological Hx Reported Smoking Status: Former smoker, Light tobacco smoker Past Alcohol Use History: Occasional Additional Past Alcohol Use History / Comment(s): Pt started smoking just occasionally in 1962 and quit in 1967. Pt states she occasionally smokes. Past Drug Use History: None Reported - Past Family History Father History Unknown: Yes Additional Family Medical History / Comment(s): Father young from suicide. Mother Family Medical History: No Reported History Additional Family Medical History / Comment(s): Pt reports that her mother had depression. Medications and Allergies Home Medications Medication Instructions Recorded Confirmed Type Calcium Carbonate [Calcium] 1,200 mg PO BID 05/04/17 02/16/22 History Ezetimibe [Zetia] 10 mg PO DAILY 08/10/20 02/16/22 History Apixaban [Eliquis] 5 mg PO BID 06/19/21 02/16/22 History Sotalol [Betapace] 80 mg PO DAILY 06/19/21 02/16/22 History Cholecalciferol [Vitamin D3 (25 25 mcg PO BID 02/16/22 02/16/22 History Mcg = 1000 Iu)] Furosemide [Lasix] 20 mg PO DAILY PRN 02/16/22 02/16/22 History Sotalol [Betapace] 40 mg PO HS 02/16/22 02/16/22 History dilTIAZem HCL 30 mg PO BID 02/16/22 02/16/22 History Allergies Allergy/AdvReac Type Severity Reaction Status Date / Time No Known Allergies Allergy Verified 02/16/22 19:27 Physical Exam Vitals: Vital Signs Temp Pulse Pulse Resp BP BP Pulse Ox 02/17/22 05:58 85 116/67 02/17/22 03:20 98.1 F 85 20 139/75 97 02/17/22 01:36 78 02/16/22 23:33 78 18 119/67 95 02/16/22 21:30 98.0 F 82 18 122/76 92 L 02/16/22 20:47 81 18 132/75 96 02/16/22 19:54 86 18 138/86 99 02/16/22 17:48 165 H 02/16/22 17:38 97.1 F L 169 H 18 128/90 99 Intake and Output 02/16/22 02/17/22 02/17/22 22:59 06:59 14:59 Other: Voiding Method Toilet Toilet # Voids 1 2 Weight 74.389 kg GENERAL: The patient is alert and oriented x3, not in any acute distress. Well developed, well nourished. HEENT: Pupils are round and equally reacting to light. EOMI. No scleral icterus. No conjunctival pallor. Normocephalic, atraumatic. No pharyngeal erythema. No thyromegaly. CARDIOVASCULAR: S1 and S2 present. No murmurs, rubs, or gallops. PULMONARY: Chest is clear to auscultation, no wheezing or crackles. ABDOMEN: Soft, nontender, nondistended, normoactive bowel sounds. No palpable organomegaly. MUSCULOSKELETAL: No joint swelling or deformity. EXTREMITIES: No cyanosis, clubbing, or pedal edema. NEUROLOGICAL: Gross neurological examination did not reveal any focal deficits. SKIN: No rashes. No petechiae Results CBC & Chem 7: 02/16/22 19:12 02/16/22 19:52 Labs: Abnormal Lab Results - Last 24 Hours (Table) 02/16/22 Range/Units 19:52 Sodium 136 L (137-145) mmol/L BUN 20 H (7-17) mg/dL Glucose 117 H (74-99) mg/dL ALT 39 H (4-34) U/L Thrombosis Risk Factor Assmnt - Choose All That Apply Any of the Below Risk Factors Present?: Yes Each Factor Represents 1 point: Swollen legs (current) Other Risk Factors: Yes Each Risk Factor Represents 3 Points: Age 75 years or older Other congenital or acquired thrombophilia - If yes, enter type in comment: No Thrombosis Risk Factor Assessment Total Risk Factor Score: 4 Thrombosis Risk Factor Assessment Level: Moderate Risk Assessment and Plan Assessment: A. fib with RVR, patient is already on Eliquis. With history of ablation Hypertension Hyperlipidemia Plan: This is a pleasant 76 years old female who presents with A. fib and RVR Continue with Cardizem drip. Resume home medication of sotalol Continue with Eliquis and aspirin Cardiology team consulted. Labs and medication were reviewed.. Continue same treatment. Continue with symptomatic treatment. Resume home medication. Monitor lytes and vitals. DVT and GI prophylaxis. Further recommendationsas per clinical course of the patient DVT prophylaxis: Eliquis GI Prophylaxis: Pepcid
[2022-02-17 08:23] VITALS: TEMP 98
[2022-02-17] MEDS ORDERED: FUROSEMIDE 20 MG TAB PO PRN (08:49)
--- NOTE | 2022-02-17 08:59 | P.CRDCN ---
History of Present Illness Consult date: 02/17/22 History of present illness: History of Present Illness: The patient is a 76-year-old female with a history of mitral regurgitation, hyperlipidemia as well as a history of atrial fibrillation, flutter status post ablation. She is followed by Dr. Schwartz at [facility] for her mitral regurgitation and has been evaluated for possible mitral valve repair. She underwent ablation few months ago but had a recurrence of her arrhythmia and is scheduled to undergo repeat ablation on March 02. Yesterday she had persistent tachycardia, associated with dizziness and dyspnea. She came into the emergency room and was noted to be tachycardic with what appears to be atrial tachycardia with 1-1 conduction. She is in atrial tachycardia with 2 to one conduction at this time, feeling well. She denies any chest discomfort, dizziness or palpitation now. She is usually active physically without significant symptoms. She had a cardiac catheterization done in 2020 and she had no evidence of coronary artery disease according to her. She is not sure about her ejection fraction. She has no history of PND, orthopnea or peripheral edema. She has no syncope. She has a history of hyperlipidemia but she is a nonsmoker, nondiabetic. She was tried on a higher dose of Cardizem but became hypotensive. Her medication at home include Eliquis 5 mg twice a day, sotalol 18 the morning and 40 in the evening, diltiazem 30 mg twice a day, Lasix 20 mg as needed, Zetia 10 mg daily. The patient drinks caffeine in the morning and about 2 alcoholic drink a day. I discussed with her the importance of alcohol cessation. Review of Systems: Respiratory: No history of asthma, bronchitis or recent cough. GI: She had nausea and vomiting today. No history of peptic ulcer disease. No recent GI bleed. : No hematuria or dysuria. Nervous System: No stroke or seizure. Physical Examination: 76-year-old female, alert and oriented no apparent distress, blood pressure 13 3/85 with a heart rate in the 80s Head: Normocephalic Eyes: Sclerae nonicteric. Neck: Good carotid upstroke, no bruit, no jugular venous distention. Lungs: Clear to auscultation. Heart: Regular rate and rhythm, S1-S2, no S3, no rub. Holosystolic murmur at the apex him a 2/6. Abdomen: Soft nontender, positive bowel sounds no organomegaly. Extremities: No edema, intact distal pulses. Labs: Potassium 4.1, BUN and creatinine 28.76, hemoglobin 14, troponin 0.016, 0.018, 0.026. Initial EKG shows tachycardia with what appears to be atrial tachycardia with 2 to one conduction, EKG this morning shows atrial tachycardia with 2 to one conduction with a ventricular rate of 86. Impression: 1. Supraventricular tachycardia with atrial tachycardia with one to one conduction. Rate controlled at this time 2. Prior history of atrial fibrillation and atrial flutter with ablation according to the patient 3. Mitral regurgitation, moderate to severe per patient, being evaluated for mitral valve surgery 4. History of hyperlipidemia Plan: 1. Stop IV Cardizem 2. Obtain an echocardiogram with Doppler 3. If she remains stable probable discharged home today and follow-up with primary solar water heater installer to proceed with ablation as planned and reevaluate mitral valve 4. 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 Past Anesthesia/Blood Transfusion Reactions: No Reported Reaction Additional Past Anesthesia/Blood Transfusion Reaction / Comment(s): Pt states she is sensitive to anesthetic medications. Past Psychological History: No Psychological Hx Reported Smoking Status: Former smoker, Light tobacco smoker Past Alcohol Use History: Occasional Additional Past Alcohol Use History / Comment(s): Pt started smoking just occasionally in 1962 and quit in 1967. Pt states she occasionally smokes. Past Drug Use History: None Reported - Past Family History Father History Unknown: Yes Additional Family Medical History / Comment(s): Father young from suicide. Mother Family Medical History: No Reported History Additional Family Medical History / Comment(s): Pt reports that her mother had depression. Medications and Allergies Home Medications Medication Instructions Recorded Confirmed Type Calcium Carbonate [Calcium] 1,200 mg PO BID 05/04/17 02/16/22 History Ezetimibe [Zetia] 10 mg PO DAILY 08/10/20 02/16/22 History Apixaban [Eliquis] 5 mg PO BID 06/19/21 02/16/22 History Sotalol [Betapace] 80 mg PO DAILY 06/19/21 02/16/22 History Cholecalciferol [Vitamin D3 (25 25 mcg PO BID 02/16/22 02/16/22 History Mcg = 1000 Iu)] Furosemide [Lasix] 20 mg PO DAILY PRN 02/16/22 02/16/22 History Sotalol [Betapace] 40 mg PO HS 02/16/22 02/16/22 History dilTIAZem HCL 30 mg PO BID 02/16/22 02/16/22 History Allergies Allergy/AdvReac Type Severity Reaction Status Date / Time No Known Allergies Allergy Verified 02/16/22 19:27 Physical Exam Vitals: Vital Signs Temp Pulse Pulse Resp BP BP Pulse Ox 02/17/22 08:00 98 F 83 16 133/85 94 L 02/17/22 05:58 85 116/67 02/17/22 03:20 98.1 F 85 20 139/75 97 02/17/22 01:36 78 02/16/22 23:33 78 18 119/67 95 02/16/22 21:30 98.0 F 82 18 122/76 92 L 02/16/22 20:47 81 18 132/75 96 02/16/22 19:54 86 18 138/86 99 02/16/22 17:48 165 H 02/16/22 17:38 97.1 F L 169 H 18 128/90 99 Intake and Output 02/16/22 02/17/22 02/17/22 22:59 06:59 14:59 Other: Voiding Method Toilet Toilet # Voids 1 2 Weight 74.389 kg Results 02/16/22 19:12 02/16/22 19:52 Cardiac Enzymes 02/16/22 02/16/22 02/16/22 Range/Units 19:12 19:52 22:23 AST 33 (14-36) U/L Troponin I 0.016 0.018 (0.000-0.034) ng/mL 02/17/22 Range/Units 02:41 AST (14-36) U/L Troponin I 0.026 (0.000-0.034) ng/mL Coagulation 02/16/22 Range/Units 19:12 PT 10.8 (9.0-12.0) sec APTT 24.5 (22.0-30.0) sec CBC 02/16/22 Range/Units 19:12 WBC 8.2 (3.8-10.6) k/uL RBC 4.30 (3.80-5.40) m/uL Hgb 14.0 (11.4-16.0) gm/dL Hct 42.2 (34.0-46.0) % Plt Count 227 (150-450) k/uL Comprehensive Metabolic Panel 02/16/22 Range/Units 19:52 Sodium 136 L (137-145) mmol/L Potassium 4.1 (3.5-5.1) mmol/L Chloride 104 (98-107) mmol/L Carbon Dioxide 22 (22-30) mmol/L BUN 20 H (7-17) mg/dL Creatinine 0.76 (0.52-1.04) mg/dL Glucose 117 H (74-99) mg/dL Calcium 9.1 (8.4-10.2) mg/dL AST 33 (14-36) U/L ALT 39 H (4-34) U/L Alkaline Phosphatase 93 (38-126) U/L Total Protein 6.7 (6.3-8.2) g/dL Albumin 3.9 (3.5-5.0) g/dL Current Medications Generic Name Dose Route Start Last Admin Trade Name Yosvanyq PRN Reason Stop Dose Admin Apixaban 5 mg 02/16/22 23:00 02/16/22 23:36 Apixaban 5 Mg Tab PO 5 mg BID [facility] Administration Protocol Calcium Carbonate/Glycine 1,000 mg 02/17/22 09:00 Calcium Carbonate 500 Mg Chewable PO BID [facility] Cholecalciferol 25 mcg 02/17/22 09:00 Cholecalciferol 25 Mcg (1000 Iu) Tablet PO BID [facility] Diltiazem HCl 30 mg 02/17/22 09:00 Diltiazem Oral 30 Mg Tab PO BID [facility] Ezetimibe 10 mg 02/17/22 09:00 Ezetimibe 10 Mg Tab PO DAILY [facility] Famotidine 20 mg 03/24/22 09:00 Famotidine 20 Mg Tab PO DAILY JANIYA Furosemide 20 mg 02/17/22 08:49 Furosemide 20 Mg Tab PO DAILY PRN Edema Nitroglycerin 0.4 mg 02/16/22 20:25 Nitroglycerin Sl Tabs 0.4 Mg Tab SUBLINGUAL Q5M PRN Chest Pain Sotalol HCl 40 mg 02/17/22 21:00 Sotalol 80 Mg Tab PO HS JANIYA Sotalol HCl 80 mg 02/17/22 09:00 Sotalol 80 Mg Tab PO DAILY JANIYA Intake and Output 02/16/22 02/17/22 02/17/22 22:59 06:59 14:59 Other: Voiding Method Toilet Toilet # Voids 1 2 Weight 74.389 kg 02/16/22 19:12 02/16/22 19:52
[2022-02-17] MEDS ORDERED: ASPIRIN 325 MG TAB PO SCH (09:00)
[2022-02-17] MEDS ORDERED: CALCIUM CARBONATE 500 MG CHEWABLE PO SCH (09:00)
[2022-02-17] MEDS ORDERED: DILTIAZEM ORAL 30 MG TAB PO SCH (09:00)
[2022-02-17] MEDS ORDERED: SOTALOL 80 MG TAB PO SCH ×2 (09:00→21:00)
[2022-02-17] MEDS ORDERED: FAMOTIDINE 20 MG TAB PO SCH (09:00)
[2022-02-17] MEDS ORDERED: CHOLECALCIFEROL 25 MCG (1000 IU) TABLET PO SCH (09:00)
[2022-02-17] MEDS ORDERED: EZETIMIBE 10 MG TAB PO SCH (09:00)
[2022-02-17 09:26] LABS: Chol/HDL Ratio 2.67 Ratio; LDL Cholesterol,Calculated 80.8 mg/dL (0.0-131.0); VLDL Calculation 15.54 mg/dL (5.00-40.00)
[2022-02-17] MEDS: APIXABAN 5 MG TAB PO SCH (09:40)
--- NOTE | 2022-02-17 10:42 | ECHOF ---
Referral Reason:atach, mr MEASUREMENTS -------- HEIGHT: 160.0 cm WEIGHT: 74.4 kg BP: RVIDd: 2.3 cm (< 3.3) IVSd: 1.7 cm (0.6 - 1.1) LVIDd: 3.2 cm (3.9 - 5.3) LVPWd: 1.5 cm (0.6 - 1.1) IVSs: 1.9 cm LVIDs: 1.7 cm LVPWs: 2.1 cm LAESV Index (A-L): 61.24 ml/m Ao Diam: 3.1 cm (2.0 - 3.7) AV Cusp: 1.6 cm (1.5 - 2.6) LA Diam: 3.9 cm (2.7 - 3.8) MV EXCURSION: 17.701 mm (> 18.000) MV EF SLOPE: 73 mm/s (70 - 150) EPSS: 0.5 cm MV E Josemanuel: 1.47 m/s MV DecT: 167 ms MV A Josemanuel: 0.62 m/s MV E/A Ratio: 2.38 RAP: 5.00 mmHg RVSP: 36.11 mmHg FINDINGS -------- This was a technically good study. The left ventricular size is normal. There is severe concentric left ventricular hypertrophy. Ove rall left ventricular systolic function is normal with, an EF between 55 - 60 %. Increased LAP Grad e 2 Diastolic Dysfunction. The right ventricle is normal in size. LA is severely dilated >40 ml/m2 The right atrial size is normal. The aortic valve is trileaflet and appears structurally normal. Mitral valve is thickened with myxomatous degeneration. Tjba-mr-qaqvhlld mitral regurgitation is pr esent. There is moderate mitral valve prolapse. The tricuspid valve appears structurally normal. Mild tricuspid regurgitation present. There is m ild pulmonary hypertension. The right ventricular systolic pressure, as measured by Doppler, is 36. 11mmHg. There is no pulmonic regurgitation present. The aortic root size is normal. Normal inferior vena cava with normal inspiratory collapse consistent with estimated right atrial pre ssure of 5 mmHg. There is a trivial pericardial effusion present. CONCLUSIONS -------- 1. The left ventricular size is normal. 2. There is severe concentric left ventricular hypertrophy. 3. Overall left ventricular systolic function is normal with, an EF between 55 - 60 %. 4. Increased LAP Grade 2 Diastolic Dysfunction. 5. LA is severely dilated >40 ml/m2 6. Mitral valve is thickened with myxomatous degeneration. 7. Ilcs-sl-qeffumle mitral regurgitation is present. 8. There is moderate mitral valve prolapse. 9. Mild tricuspid regurgitation present. 10. There is mild pulmonary hypertension. 11. The right ventricular systolic pressure, as measured by Doppler, is 36.11mmHg. 12. There is a trivial pericardial effusion present. MERCHANDISE PROCESSOR: Di Sotelo RDCS
[2022-02-17 13:57] VITALS: BP 137/64; PULSE 82; RESP 17
--- NOTE | 2022-02-17 15:01 | CDI ---
Documentation Clarification Form Date: 02/18/2022 02:45:04 PM From: Margo Fontana RN, CCDS Admit Date: 02/16/2022 08:25:00 PM Patient Name: Julia Monroe Visit Number: [id number] Discharge Date: 02/17/2022 02:33:00 PM ATTENTION: The Clinical Documentation Specialists (CDI) and [facility] Coding Staff appreciate your assistance in clarifying documentation. Please respond to the clarification below the line at the bottom and electronically sign. The CDI & [facility] Coding staff will review the response and follow-up if needed. Please note: Queries are made part of the Legal Health Record. If you have any questions, please contact the author of this message via ITS. Dr. Jean Wynne Atrial Fibrillation is documented in the H/P and consult note on 02/17. Additional clarification regarding the type of atrial fibrillation is requested. History/Risk Factors: Atrial Fibrillation, Atrial Flutter Clinical Indicators: 76-year-old female present with chest pain. She's on Eliquis and is supposed to get ablation on March 02. She reports her heart race. 02/17 Vital sign: 128/90 169 18 99 % RA 02/17 EKG: Telemetry: Atrial Flutter at 160 bpm 02/17 EKG shows atrial fibrillation with rapid ventricular response at 112. (after Adenosine IV) Treatment: Telemetry Monitoring Adenosine 6 MG IVP Once Cardizem IV 5MG IV Once then 125MG IV Drip] Betapace 40 PO HS, ASA 325MG PO Daily Please clarify the type of atrial fibrillation, if known: [ ] Chronic [ ] Permanent [ XXX ] Paroxysmal [ ] Persistent [ ] Other, please specify [ ] Unable to determine (Template Last Revised: March 2021) MTDD
== END 2022-02-17 14:33 | disposition home or self-care (01) ==
LOC: EC 17:34 → 3SCARD 20:25 → INTOOBSV 20:25 → 3SCARD 20:41 → UNDODISIN 02-17 14:33
PROVIDERS: ADMIT Internal Medicine; ATTEND Internal Medicine
DX: I48.0 Paroxysmal atrial fibrillation (principal); I47.1 Supraventricular tachycardia; I34.0 Nonrheumatic mitral (valve) insufficiency; J44.9 Chronic obstructive pulmonary disease, unspecified; I10 Essential (primary) hypertension; E78.5 Hyperlipidemia, unspecified; I34.1 Nonrheumatic mitral (valve) prolapse; I48.92 Unspecified atrial flutter; F17.210 Nicotine dependence, cigarettes, uncomplicated; Z79.01 Long term (current) use of anticoagulants; Z79.899 Other long term (current) drug therapy; Z87.01 Personal history of pneumonia (recurrent); Z86.010 Personal history of colon polyps; Z87.11 Personal history of peptic ulcer disease; Z90.49 Acquired absence of other specified parts of digestive tract; Z90.710 Acquired absence of both cervix and uterus; Z87.440 Personal history of urinary (tract) infections; Z96.652 Presence of left artificial knee joint; Z98.890 Other specified postprocedural states; Z81.8 Family history of other mental and behavioral disorders
CPT/HCPCS: 96366 ×3; 96376; 96365; 96375; 99291; 36415; 93005; 93306; 80061; 80053; 83735; 84484 ×2; 85025; 85610; 85730; 71046; G0378 ×2; J0153; 96374

== ENCOUNTER 2022-05-30 15:37 | Inpatient (IN) | payer MEDICARE ==
[2022-05-30] MEDS ORDERED: SODIUM CHLORIDE 0.9% 1,000 ML IV STA (15:56)
[2022-05-30 16:22] LABS: Basophils # (A) 0.1 k/uL (0-0.2); Basophils % (A) 2 %; Eosinophils # (A) 0.2 k/uL (0-0.7); Eosinophils % (A) 2 %; HCT 37.9 % (34.0-46.0); Lymphocytes # (A) 2.2 k/uL (1.0-4.8); Lymphocytes % (A) 31 %; MCHC 34.3 g/dL (31.0-37.0); Mean Platelet Volume 7.3; Monocytes # (A) 0.4 k/uL (0-1.0); Monocytes % (A) 6 %; Neutrophils % (A) 57 %; Platelet Count 214 k/uL (150-450); RBC 3.95 m/uL (3.80-5.40); RDW 13.8 % (11.5-15.5)
--- NOTE | 2022-05-30 16:22 | ED ---
Arrhythmia/Palpitations HPI - General Chief Complaint: Arrhythmia/Palpitations Stated Complaint: AFib, Shortness of Breath Time Seen by Provider: 05/30/22 15:49 Source: patient Mode of arrival: ambulatory Limitations: no limitations - History of Present Illness Initial Comments: Patient is a 76-year-old female with a past medical history significant for atrial fibrillation on Eliquis, hyperlipidemia, and hypertension who presents to the emergency department with a chief complaint of shortness of breath and palpitations. Patient states symptoms started one to 2 hours ago. Reports malaise. She denies fever, chills, syncope, cough, PND, orthopnea, chest pain, abdominal pain, nausea, vomiting, and diarrhea. Denies history of DVT and PE. Patient follows with vamp strap ironer Dr. Qureshi at [facility] and underwent an EP ablation study in October with Dr. Hazel followed by a second ablation in February. States she was taken off diltiazem in February, currently taking Sotalol 80 mg BID. Patient states for the past 2 weeks she feels as if she has went in and out of atrial fibrillation. Patient has pacemaker procedure scheduled for June 10. Denies alcohol use. Reports 1 cup of coffee per day. - Related Data Home Medications Medication Instructions Recorded Confirmed Calcium Carbonate [Calcium] 1,200 mg PO BID 05/04/17 02/16/22 Ezetimibe [Zetia] 10 mg PO DAILY 08/10/20 02/16/22 Apixaban [Eliquis] 5 mg PO BID 06/19/21 02/16/22 Cholecalciferol [Vitamin D3 (25 25 mcg PO BID 02/16/22 02/16/22 Mcg = 1000 Iu)] Sotalol [Betapace] 40 mg PO HS 02/16/22 02/16/22 Metoprolol Tartrate [Lopressor] 25 mg PO DAILY PRN 05/30/22 05/30/22 Allergies Allergy/AdvReac Type Severity Reaction Status Date / Time No Known Allergies Allergy Verified 05/30/22 18:10 Review of Systems ROS Statement: Those systems with pertinent positive or pertinent negative responses have been documented in the HPI. ROS Other: All systems not noted in ROS Statement are negative. 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 History of Any Multi-Drug Resistant Organisms: None Reported Past Surgical History: Bowel Resection, Ear Surgery, Heart Catheterization, Hysterectomy, Joint Replacement, Orthopedic Surgery Additional Past Surgical History / Comment(s): 06/2020 L knee arthroplasty, L knee arthroscopy, EGD, colonoscopies and had bowel tear (tissue was thin) then had bowel resection, L ear surgery, D&Cs. Past Anesthesia/Blood Transfusion Reactions: No Reported Reaction Additional Past Anesthesia/Blood Transfusion Reaction / Comment(s): Pt states she is sensitive to anesthetic medications. Past Psychological History: No Psychological Hx Reported Smoking Status: Current some day smoker, Light tobacco smoker Past Alcohol Use History: Daily Past Drug Use History: None Reported - Past Family History Father History Unknown: Yes Additional Family Medical History / Comment(s): Father young from suicide. Mother Family Medical History: No Reported History Additional Family Medical History / Comment(s): Pt reports that her mother had depression. General Exam Limitations: no limitations Course Vital Signs 05/30/22 05/30/22 05/30/22 15:39 16:23 16:37 Temperature 96.9 F L Pulse Rate 92 87 Pulse Rate [ 126 H [employer]] Respiratory 20 18 Rate Blood Pressure 132/89 134/80 O2 Sat by Pulse 99 99 Oximetry EKG Findings - EKG Comments: EKG Findings:: EKG taken at 15:44. Atrial fibrillation, no ST segment or T-wave abnormalities. Ventricular rate 92. QRS duration 94,. QTC 434 Medical Decision Making - Medical Decision Making This is a 76-year-old female with known atrial fibrillation presenting with shortness of breath and heart palpitations. Thorough history and examination were performed. Patient is well-appearing and in no apparent distress. Vitals are stable. There is no JVD or peripheral edema. EKG shows atrial fibrillation with ventricular rate at 92. There are no ST or T-wave abnormalities. Patient does not have chest pain. Previous echocardiogram on 02/17/2022 was reviewed which is significant for severe concentric left ventricular hypertrophy and mitral regurgitation. Ejection fraction is 55-60%. Laboratory studies obtained and significant for elevated BNP at 1830. Troponin and d-dimer are within normal limits. Chest x-ray shows cardiomegaly and mild pulmonary vascular congestion which appears new compared to previous chest xray. Case discussed with Nic Montano NP. Patient will be admitted to his service with cardiology consult for further evaluation and management. Results discussed with patient who verbalizes understanding and is agreeable to admission. Patient admitted in stable condition. Dr. Garg is my attending. - Lab Data Result diagrams: 05/30/22 16:08 05/30/22 16:08 Lab Results 05/30/22 05/30/22 05/30/22 Range/Units 16:08 16:08 16:08 WBC 7.0 (3.8-10.6) k/uL RBC 3.95 (3.80-5.40) m/uL Hgb 13.0 (11.4-16.0) gm/dL Hct 37.9 (34.0-46.0) % MCV 96.0 (80.0-100.0) fL MCH 33.0 (25.0-35.0) pg MCHC 34.3 (31.0-37.0) g/dL RDW 13.8 (11.5-15.5) % Plt Count 214 (150-450) k/uL MPV 7.3 Neutrophils % 57 % Lymphocytes % 31 % Monocytes % 6 % Eosinophils % 2 % Basophils % 2 % Neutrophils # 4.0 (1.3-7.7) k/uL Lymphocytes # 2.2 (1.0-4.8) k/uL Monocytes # 0.4 (0-1.0) k/uL Eosinophils # 0.2 (0-0.7) k/uL Basophils # 0.1 (0-0.2) k/uL PT 10.6 (9.0-12.0) sec INR 1.0 (<1.2) APTT 24.8 (22.0-30.0) sec D-Dimer 0.20 (<0.60) mg/L FEU Sodium 134 L (137-145) mmol/L Potassium 3.9 (3.5-5.1) mmol/L Chloride 104 (98-107) mmol/L Carbon Dioxide 23 (22-30) mmol/L Anion Gap 7 mmol/L BUN 16 (7-17) mg/dL Creatinine 0.74 (0.52-1.04) mg/dL Est GFR (CKD-EPI)AfAm >90 (>60 ml/min/1.73 sqM) Est GFR (CKD-EPI)NonAf 80 (>60 ml/min/1.73 sqM) Glucose 119 H (74-99) mg/dL Calcium 9.1 (8.4-10.2) mg/dL Magnesium 1.8 (1.6-2.3) mg/dL Total Bilirubin 0.3 (0.2-1.3) mg/dL AST 41 H (14-36) U/L ALT 33 (4-34) U/L Alkaline Phosphatase 191 H (38-126) U/L Troponin I (0.000-0.034) ng/mL NT-Pro-B Natriuret Pep pg/mL Total Protein 6.6 (6.3-8.2) g/dL Albumin 4.1 (3.5-5.0) g/dL 05/30/22 05/30/22 Range/Units 16:08 16:08 WBC (3.8-10.6) k/uL RBC (3.80-5.40) m/uL Hgb (11.4-16.0) gm/dL Hct (34.0-46.0) % MCV (80.0-100.0) fL MCH (25.0-35.0) pg MCHC (31.0-37.0) g/dL RDW (11.5-15.5) % Plt Count (150-450) k/uL MPV Neutrophils % % Lymphocytes % % Monocytes % % Eosinophils % % Basophils % % Neutrophils # (1.3-7.7) k/uL Lymphocytes # (1.0-4.8) k/uL Monocytes # (0-1.0) k/uL Eosinophils # (0-0.7) k/uL Basophils # (0-0.2) k/uL PT (9.0-12.0) sec INR (<1.2) APTT (22.0-30.0) sec D-Dimer (<0.60) mg/L FEU Sodium (137-145) mmol/L Potassium (3.5-5.1) mmol/L Chloride (98-107) mmol/L Carbon Dioxide (22-30) mmol/L Anion Gap mmol/L BUN (7-17) mg/dL Creatinine (0.52-1.04) mg/dL Est GFR (CKD-EPI)AfAm (>60 ml/min/1.73 sqM) Est GFR (CKD-EPI)NonAf (>60 ml/min/1.73 sqM) Glucose (74-99) mg/dL Calcium (8.4-10.2) mg/dL Magnesium (1.6-2.3) mg/dL Total Bilirubin (0.2-1.3) mg/dL AST (14-36) U/L ALT (4-34) U/L Alkaline Phosphatase (38-126) U/L Troponin I <0.012 (0.000-0.034) ng/mL NT-Pro-B Natriuret Pep 1830 pg/mL Total Protein (6.3-8.2) g/dL Albumin (3.5-5.0) g/dL Disposition Clinical Impression: Atrial fibrillation, Shortness of breath, Palpitations, History of radiofrequency ablation procedure for cardiac arrhythmia, Elevated brain natriuretic peptide (BNP) level, Cardiomegaly Disposition: ADMITTED IP TO THIS HOSP Condition: Fair Referrals: Leslie Manning MD [Primary Care Provider] - 1-2 days Decision Time: 18:35
--- NOTE | 2022-05-30 16:33 | XR ---
EXAMINATION TYPE: XR chest 2V DATE OF EXAM: 05/30/2022 4:27 PM COMPARISON: Chest radiographs 02/16/2022 TECHNIQUE: XR chest 2V Frontal and lateral views of the chest. CLINICAL INDICATION:Female, 76 years old with history of SOB; FINDINGS: Lungs/Pleura: There is no evidence of pleural effusion, focal consolidation, or pneumothorax. Pulmonary vascularity: Pulmonary vascular congestion. Heart/mediastinum: Cardiomediastinal silhouette is enlarged and stable. A loop recorder projects over the left thorax over the heart. Musculoskeletal: No acute osseous pathology. IMPRESSION: Cardiomegaly and mild pulmonary vascular congestion. Correlate with BNP for congestive heart failure.
[2022-05-30 16:34] LABS: ALT 33 U/L (4-34); AST 41 U/L (14-36); African American GFR (CKD) >90 (>60 ml/min/1.73 sqM); Albumin 4.1 g/dL (3.5-5.0); Alkaline Phosphatase 191 U/L (38-126); Anion Gap 7 mmol/L; Blood Urea Nitrogen 16 mg/dL (7-17); Calcium 9.1 mg/dL (8.4-10.2); Carbon Dioxide 23 mmol/L (22-30); Chloride 104 mmol/L (98-107); Glucose 119 mg/dL (74-99); Magnesium 1.8 mg/dL (1.6-2.3); Non-African American GFR(CKD) 80 (>60 ml/min/1.73 sqM); Potassium 3.9 mmol/L (3.5-5.1); Sodium 134 mmol/L (137-145); Total Bilirubin 0.3 mg/dL (0.2-1.3); Total Protein 6.6 g/dL (6.3-8.2)
[2022-05-30 16:42] LABS: Partial Thromboplastin Time 24.8 sec (22.0-30.0); Prothrombin Time 10.6 sec (9.0-12.0)
[2022-05-30] MEDS: SODIUM CHLORIDE 0.9% 1,000 ML IV SCH (18:56)
[2022-05-30] MEDS: SOTALOL 80 MG TAB PO SCH (22:23)
[2022-05-30] MEDS: APIXABAN 5 MG TAB PO SCH (22:23)
[2022-05-31] MEDS: SODIUM CHLORIDE 0.9% 1,000 ML IV SCH (01:33)
[2022-05-31] MEDS: SOTALOL 80 MG TAB PO SCH (08:18)
[2022-05-31] MEDS: APIXABAN 5 MG TAB PO SCH (08:18)
[2022-05-31] MEDS ORDERED: EZETIMIBE 10 MG TAB PO SCH (09:00)
[2022-05-31] MEDS ORDERED: CHOLECALCIFEROL 25 MCG (1000 IU) TABLET PO SCH (09:00)
[2022-05-31] MEDS ORDERED: CALCIUM CARBONATE 500 MG CHEWABLE PO SCH (09:00)
--- NOTE | 2022-05-31 09:42 | P.HPIM ---
History of Present Illness This is a pleasant 76 years old female with past medical history of Atrial Flutter, Hyperlipidemia, Pneumonias/p Cardiac Ablation, and cardioversion She presents because of palpitation and shortness of breath and almost blacked out , with her symptoms of palpitation going on and off. But this time it. Distal she came to emergency room She denies any diarrhea or vomiting or abdominal pain. No dysuria or urgency. No headache or weakness or numbness. Heart rate on admission was at 126 currently controlled and on vitals are stable and patient of breath. Labs CBC, BMP, liver enzymes were unremarkable. D-dimer negative at 0.2 Upon and is negative. ProBNP 1830. Chest x-ray: Cardiomegaly with mild vascular congestion EKG: Atrial fibrillation with a rate of 92 Review of Systems Review of systems CONSTITUTIONAL: No fever, no malaise, no fatigue. HEENT: No recent visual problems or hearing problems. Denied any sore throat. CARDIOVASCULAR: No orthopnea, PND, no palpitations, no syncope. PULMONARY: No shortness of breath, no cough, no hemoptysis. GASTROINTESTINAL: No diarrhea, no nausea, no vomiting, no abdominal pain. Normoactive bowel sounds. NEUROLOGICAL: No headaches, no weakness, no numbness. HEMATOLOGICAL: Denies any bleeding or petechiae. GENITOURINARY: Denies any burning micturition, frequency, or urgency. MUSCULOSKELETAL/RHEUMATOLOGICAL: Denies any joint pain, swelling, or any muscle pain. ENDOCRINE: Denies any polyuria or polydipsia. 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 History of Any Multi-Drug Resistant Organisms: None Reported Past Surgical History: Bowel Resection, Ear Surgery, Heart Catheterization, Hysterectomy, Joint Replacement, Orthopedic Surgery Additional Past Surgical History / Comment(s): 06/2020 L knee arthroplasty, L knee arthroscopy, EGD, colonoscopies and had bowel tear (tissue was thin) then had bowel resection, L ear surgery, D&Cs. Past Anesthesia/Blood Transfusion Reactions: No Reported Reaction Additional Past Anesthesia/Blood Transfusion Reaction / Comment(s): Pt states she is sensitive to anesthetic medications. Type of Cardiac Device: Loop Device Placement Date:: 2018 Past Psychological History: No Psychological Hx Reported Smoking Status: Current some day smoker, Light tobacco smoker Past Alcohol Use History: Daily Past Drug Use History: None Reported - Past Family History Father History Unknown: Yes Additional Family Medical History / Comment(s): Father young from suicide. Mother Family Medical History: No Reported History Additional Family Medical History / Comment(s): Pt reports that her mother had depression. Medications and Allergies Home Medications Medication Instructions Recorded Confirmed Type Calcium Carbonate [Calcium] 600 mg PO DAILY 05/04/17 05/30/22 History Ezetimibe [Zetia] 10 mg PO DAILY 08/10/20 05/30/22 History Apixaban [Eliquis] 5 mg PO BID 06/19/21 05/30/22 History Cholecalciferol [Vitamin D3 (25 25 mcg PO DAILY 02/16/22 05/30/22 History Mcg = 1000 Iu)] Sotalol [Betapace] 80 mg PO BID 02/16/22 05/30/22 History Metoprolol Tartrate [Lopressor] 25 mg PO DAILY PRN 05/30/22 05/30/22 History Allergies Allergy/AdvReac Type Severity Reaction Status Date / Time No Known Allergies Allergy Verified 05/30/22 18:10 Physical Exam Vitals: Vital Signs Temp Pulse Pulse Pulse Resp BP BP 05/31/22 08:00 97.8 F 92 16 128/87 05/31/22 03:33 98.2 F 86 16 110/72 05/30/22 23:45 97.9 F 88 16 113/73 05/30/22 21:00 98.1 F 89 18 113/71 05/30/22 19:17 88 16 130/1 05/30/22 18:00 87 18 132/76 05/30/22 16:37 87 18 134/80 05/30/22 16:23 126 H 05/30/22 15:39 96.9 F L 92 20 132/89 Pulse Ox 05/31/22 08:00 95 05/31/22 03:33 97 05/30/22 23:45 96 05/30/22 21:00 95 05/30/22 19:17 95 05/30/22 18:00 97 05/30/22 16:37 99 05/30/22 16:23 05/30/22 15:39 99 Intake and Output 05/30/22 05/31/22 05/31/22 22:59 06:59 14:59 Intake Total 240 Balance 240 Intake: Oral 240 Other: Voiding Method Toilet Toilet # Voids 1 1 Weight 73.936 kg GENERAL: The patient is alert and oriented x3, not in any acute distress. Well developed, well nourished. HEENT: Pupils are round and equally reacting to light. EOMI. No scleral icterus. No conjunctival pallor. Normocephalic, atraumatic. No pharyngeal erythema. No thyromegaly. CARDIOVASCULAR: S1 and S2 present. No murmurs, rubs, or gallops. PULMONARY: Chest is clear to auscultation, no wheezing or crackles. ABDOMEN: Soft, nontender, nondistended, normoactive bowel sounds. No palpable organomegaly. MUSCULOSKELETAL: No joint swelling or deformity. EXTREMITIES: No cyanosis, clubbing, or pedal edema. NEUROLOGICAL: Gross neurological examination did not reveal any focal deficits. SKIN: No rashes. no petechiae. Results CBC & Chem 7: 05/30/22 16:08 05/30/22 16:08 Labs: Abnormal Lab Results - Last 24 Hours (Table) 05/30/22 Range/Units 16:08 Sodium 134 L (137-145) mmol/L Glucose 119 H (74-99) mg/dL AST 41 H (14-36) U/L Alkaline Phosphatase 191 H (38-126) U/L Thrombosis Risk Factor Assmnt - Choose All That Apply Each Factor Represents 1 point: Obesity (BMI >25) Each Risk Factor Represents 3 Points: Age 75 years or older Thrombosis Risk Factor Assessment Total Risk Factor Score: 4 Thrombosis Risk Factor Assessment Level: Moderate Risk Assessment and Plan Assessment: Atrial flutter with RVR Hyperlipidemia History of pneumonia and UTI Plan: This is a pleasant 76 years old female who presents with atrial flutter Continue with the [employer] Resume her sotalol Cardiology consult Labs and medication were reviewed.. Continue same treatment. Continue with symptomatic treatment. Resume home medication. Monitor lytes and vitals. DVT and GI prophylaxis. Further recommendationsas per clinical course of the patient DVT prophylaxis: Eliquis GI Prophylaxis: Pepcid
--- NOTE | 2022-05-31 11:41 | P.CRDCN ---
History of Present Illness History of present illness: The patient is a 76-year-old female with a history of mitral regurgitation, hyperlipidemia, atrial fibrillation, flutter status post prior cardioversions and ablations on Eliquis (Ablation in October 2021 and February 2022), SVT with atrial tachycardia in 01/2022. She is followed by Dr. Schwartz at [facility] for her mitral regurgitation and has been evaluated for possible mitral valve repair, but not performed secondary to SANJU results. We are being consulted for atrial fibrillation without RVR and possible CHF. Patient presented to the ER with complaints of episode of lightheadedness, near syncope, palpitations and shortness of breath. Yesterday she states she was just sitting down, had acute onset of palpitations, lightheadedness. [place] shortness of breath. She checked her heart rates at home with her apple watch and noted them to be fluctuating, HR up to 117. She came to the ER for further evaluation. Her symptoms have resolved. She is feeling well. She has been compliant with her medications. No new medication changes. Patient underwent an EP ablation study in October [address] Hazel followed by a second ablation in February 2022 States she was taken off diltiazem in February secondary to bradycardia. She is currently taking Sotalol 80 mg BID. Patient s tates for the past 2 weeks she feels as if she has went in and out of atrial fibrillation. Patient has pacemaker procedure scheduled for June 10. Denies any history of CAD, MA, Stroke, or diabetes. She denies tobacco or alcohol use. Reports 1 cup of coffee per day. DIAGNOSTICS EKG- atrial tachycardia HR 92, no ST-T wave abnormalities to suggest ischemia Labs CBC unremarkable, troponin negative, proBNP 1830, d-dimer negative, sodium 134, potassium 3.9, BUN 16, serum troponin 0.7, magnesium 1.8 Chest Xray mild pulmonary vascular congestion on admission Telemetry this morning revealed sinus mechanism and atrial tachycardia HR 80s- 90s Echocardiogram 01/2022 revealed EF 5560 percent, increased grade 2 diastolic dysfunction, mild to moderate mitral regurgitation, moderate mitral valve prolapse, mild tricuspid regurgitation, mild pulmonary hypertension with an RVSP of 36 mmHg She had a cardiac catheterization done in 2020 and she had no evidence of coronary artery disease according to her Her medication at home include Eliquis 5 mg twice a day, sotalol 80mg BID, metoprolol 25 PRN, Zetia 10 mg daily. REVIEW OF SYSTEMS At the time of my exam: CONSTITUTIONAL: Denies fever or chills. CARDIOVASCULAR: Denies chest pain, +shortness of breath, Denies orthopnea, PND +palpitations. RESPIRATORY: Denies cough. GASTROINTESTINAL: Denies abdominal pain, diarrhea, constipation, nausea or vomiting. MUSCULOSKELETAL: Denies myalgias. NEUROLOGIC: Denies numbness, tingling, headache or weakness. ENDOCRINE: Denies fatigue, weight change, polydipsia or polyurina. GENITOURINARY: Denies burning, hematuria or urgency with micturation. HEMATOLOGIC: Denies history of anemia or bleeding. PHYSICAL EXAMINATION Blood pressure 128/87, heart rate 92, afebrile, saturation is 95% on room air CONSTITUTIONAL: No apparent distress. HEENT: Head is normocephalic. Pupils are equal, round. Sclerae anicteric. Mucous membranes of the mouth are moist. No JVD. No carotid bruit. CHEST EXAMINATION: Lungs are clear to auscultation. No chest wall tenderness is noted on palpation or with deep breathing. HEART EXAMINATION: Regular rate and rhythm. S1, S2 heard. Systolic murmur at apex. ABDOMEN: Soft, nontender. Positive bowel sounds. EXTREMITIES: 2+ peripheral pulses, no lower extremity edema and no calf tenderness. SKIN: warm, dry NEUROLOGIC EXAMINATION: Patient is awake, alert and oriented x3. ASSESSMENT Atrial tachycardia Persistent Atrial fibrillation and atrial flutter with prior ablation in October 2021 and February 2022, prior cardioversion as well according to the patient, on Eliquis History of Supraventricular tachycardia with atrial tachycardia with one to one conduction in 01/2022. Rate controlled at this time Mitral regurgitation, being evaluated for mitral valve surgery currently on hold at this time per patient History of hyperlipidemia PLAN 2D echo to evaluate LV function Continue Eliquis Continue home cardiac medications Sotalol If echo without any acute findings, ok for patient to be discharged later today from a cardiology perspective, close follow up outpatient with her Hot Packer. Plan for pacemaker implantation next week. Recommend earlier appointment with joy loading machine operator. Nurse practitioner note has been reviewed by physician. Signing provider agrees with the documented findings, assessment, and plan of care. 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 History of Any Multi-Drug Resistant Organisms: None Reported Past Surgical History: Bowel Resection, Ear Surgery, Heart Catheterization, Hysterectomy, Joint Replacement, Orthopedic Surgery Additional Past Surgical History / Comment(s): 06/2020 L knee arthroplasty, L knee arthroscopy, EGD, colonoscopies and had bowel tear (tissue was thin) then had bowel resection, L ear surgery, D&Cs. Past Anesthesia/Blood Transfusion Reactions: No Reported Reaction Additional Past Anesthesia/Blood Transfusion Reaction / Comment(s): Pt states she is sensitive to anesthetic medications. Past Psychological History: No Psychological Hx Reported Smoking Status: Current some day smoker, Light tobacco smoker Past Alcohol Use History: Daily Past Drug Use History: None Reported - Past Family History Father History Unknown: Yes Additional Family Medical History / Comment(s): Father young from suicide. Mother Family Medical History: No Reported History Additional Family Medical History / Comment(s): Pt reports that her mother had depression. Medications and Allergies Home Medications Medication Instructions Recorded Confirmed Type Calcium Carbonate [Calcium] 600 mg PO DAILY 05/04/17 05/30/22 History Ezetimibe [Zetia] 10 mg PO DAILY 08/10/20 05/30/22 History Apixaban [Eliquis] 5 mg PO BID 06/19/21 05/30/22 History Cholecalciferol [Vitamin D3 (25 25 mcg PO DAILY 02/16/22 05/30/22 History Mcg = 1000 Iu)] Sotalol [Betapace] 80 mg PO BID 02/16/22 05/30/22 History Metoprolol Tartrate [Lopressor] 25 mg PO DAILY PRN 05/30/22 05/30/22 History Allergies Allergy/AdvReac Type Severity Reaction Status Date / Time No Known Allergies Allergy Verified 05/30/22 18:10 Physical Exam Vitals: Vital Signs Temp Pulse Pulse Resp BP Pulse Ox 05/30/22 19:17 88 16 130/1 95 05/30/22 18:00 87 18 132/76 97 05/30/22 16:37 87 18 134/80 99 05/30/22 16:23 126 H 05/30/22 15:39 96.9 F L 92 20 132/89 99 Intake and Output 05/30/22 05/30/22 05/30/22 06:59 14:59 22:59 Other: Weight 73.936 kg Results 05/30/22 16:08 05/30/22 16:08 Cardiac Enzymes 05/30/22 05/30/22 Range/Units 16:08 16:08 AST 41 H (14-36) U/L Troponin I <0.012 (0.000-0.034) ng/mL Coagulation 05/30/22 Range/Units 16:08 PT 10.6 (9.0-12.0) sec APTT 24.8 (22.0-30.0) sec CBC 05/30/22 Range/Units 16:08 WBC 7.0 (3.8-10.6) k/uL RBC 3.95 (3.80-5.40) m/uL Hgb 13.0 (11.4-16.0) gm/dL Hct 37.9 (34.0-46.0) % Plt Count 214 (150-450) k/uL Comprehensive Metabolic Panel 05/30/22 Range/Units 16:08 Sodium 134 L (137-145) mmol/L Potassium 3.9 (3.5-5.1) mmol/L Chloride 104 (98-107) mmol/L Carbon Dioxide 23 (22-30) mmol/L BUN 16 (7-17) mg/dL Creatinine 0.74 (0.52-1.04) mg/dL Glucose 119 H (74-99) mg/dL Calcium 9.1 (8.4-10.2) mg/dL AST 41 H (14-36) U/L ALT 33 (4-34) U/L Alkaline Phosphatase 191 H (38-126) U/L Total Protein 6.6 (6.3-8.2) g/dL Albumin 4.1 (3.5-5.0) g/dL Current Medications Generic Name Dose Route Start Last Admin Trade Name Freq PRN Reason Stop Dose Admin Sodium Chloride 1,000 mls @ 130 mls/hr 05/30/22 18:45 05/30/22 18:56 Saline 0.9% IV 130 mls/hr .[id number] JANIYA Administration Intake and Output 05/30/22 05/30/22 05/30/22 06:59 14:59 22:59 Other: Weight 73.936 kg Patient Weight 05/31/22 06:59 Weight 73.936 kg 05/30/22 16:08 05/30/22 16:08
[2022-05-31 12:33] VITALS: BP 126/79; PULSE 86; RESP 18; TEMP 98.7
--- NOTE | 2022-05-31 13:07 | CA ---
Transthoracic Echo Report Name: Julia Monroe Age: 76 Gender: F : 1945 Exam Date: 05/31/2022 11:19 Exam Location: [place] [facility] Ht (in): 62 Wt (lb): 163 Ordering Physician: Delicia Hart Attending/Referring Phys: Jose Harrell MD Build Manager Yu Zavaleta RDCS Procedure CPT: Indications: LV function evaluate/repeat Cardiac Hx: Technical Quality: Contrast 1: Total Dose (mL): Contrast 2: Total Dose (mL): MEASUREMENTS (Male / Female) Normal Values 2D ECHO LV Diastolic Diameter PLAX 4.4 cm 4.2 - 5.9 / 3.9 - 5.3 cm LV Systolic Diameter PLAX 3.2 cm IVS Diastolic Thickness 1.2 cm 0.6 - 1.0 / 0.6 - 0.9 cm LVPW Diastolic Thickness 1.6 cm 0.6 - 1.0 / 0.6 - 0.9 cm LV Relative Wall Thickness 0.6 RV Internal Dim ED PLAX 2.7 cm LA Systolic Diameter LX 5.1 cm 3.0 - 4.0 / 2.7 - 3.8 cm LA Volume 123.5 cm??? 18 - 58 / 22 - 52 cm??? M-MODE Aortic Root Diameter MM 2.7 cm LA Systolic Diameter MM 4.3 cm LA Ao Ratio MM 1.6 AV Cusp Separation MM 1.7 cm DOPPLER MV E' Velocity 2.6 cm/s TR Peak Velocity 320.1 cm/s TR Peak Gradient 41.0 mmHg Right Ventricular Systolic Press 46.0 mmHg FINDINGS Left Ventricle Left ventricular ejection fraction is estimated at 50-55%. Right Ventricle Normal right ventricular size and function. Mild pulmonary hypertension. Right Atrium Normal right atrial size. Left Atrium Severely increased left atrial diameter. Severely increased left atrial volume. Mildly increased left atrial area. Mitral Valve Mild prolapse of the posterior mitral valve leaflet. Moderate mitral regurgitation. Aortic Valve Trileaflet aortic valve. Tricuspid Valve Structurally normal tricuspid valve. Pulmonic Valve Structurally normal pulmonic valve. Pericardium Normal pericardium. Aorta Normal size aortic root and proximal ascending aorta. CONCLUSIONS Normal left ventricular dimension and systolic from Mitral valve prolapse with moderate mitral regurg the Previewed by: Dr. Jake Brunson MD (Electronically Signed) Final Date: 31 May 2022 13:06
[2022-05-31] MEDS ORDERED: FAMOTIDINE 20 MG/2 ML VIAL IV SCH (21:00)
== END 2022-05-31 16:30 | disposition home or self-care (01) | DRG 310 ==
LOC: EC 15:37 → 3SCARD 18:59
PROVIDERS: ADMIT Hospitalist; ATTEND Hospitalist
DX: I48.92 Unspecified atrial flutter (principal); I47.1 Supraventricular tachycardia; I48.19 Other persistent atrial fibrillation; I08.1 Rheumatic disorders of both mitral and tricuspid valves; R79.89 Other specified abnormal findings of blood chemistry; I27.20 Pulmonary hypertension, unspecified; E78.5 Hyperlipidemia, unspecified; I10 Essential (primary) hypertension; F17.210 Nicotine dependence, cigarettes, uncomplicated; R55 Syncope and collapse; E66.9 Obesity, unspecified; Z68.28 Body mass index [BMI] 28.0-28.9, adult; R53.81 Other malaise; Z96.652 Presence of left artificial knee joint; Z79.01 Long term (current) use of anticoagulants; Z98.890 Other specified postprocedural states; Z79.899 Other long term (current) drug therapy; Z87.01 Personal history of pneumonia (recurrent)
CPT/HCPCS: 36415; 71046; 80053; 83735; 83880; 84484; 85025; 85379; 85610; 85730; 93005; 93306; 96360; 99285

== ENCOUNTER 2022-11-15 06:27 | Emergency (ER) | payer MEDICARE ==
[2022-11-15] MEDS ORDERED: ACETAMINOPHEN TAB 500 MG TAB PO STA (06:47)
--- NOTE | 2022-11-15 06:48 | ED ---
URI HPI - General Chief Complaint: Upper Respiratory Infection Stated Complaint: Shortness of breath, Cough, Fever Time Seen by Provider: 11/15/22 06:39 Source: patient, RN notes reviewed Mode of arrival: wheelchair Limitations: no limitations - History of Present Illness Initial Comments: 77-year-old female presents emergency Department chief complaint of fever cough congestion body aches. Patient states symptoms started to 3 days ago. She has not taken any recent acetaminophen or ibuprofen. Patient states that she has a headache, mild nasal congestion, clear sputum upon her cough. She has no chest pain or shortness of breath denies any history asthma or COPD. Denies any GI symptoms including nausea, vomiting diarrhea constipation no sick contacts. Patient has NO KNOWN DRUG ALLERGIES. - Related Data Home Medications Medication Instructions Recorded Confirmed Calcium Carbonate [Calcium] 600 mg PO DAILY 05/04/17 05/30/22 Ezetimibe [Zetia] 10 mg PO DAILY 08/10/20 05/30/22 Apixaban [Eliquis] 5 mg PO BID 06/19/21 05/30/22 Cholecalciferol [Vitamin D3 (25 25 mcg PO DAILY 02/16/22 05/30/22 Mcg = 1000 Iu)] Sotalol [Betapace] 80 mg PO BID 02/16/22 05/30/22 Metoprolol Tartrate [Lopressor] 25 mg PO DAILY PRN 05/30/22 05/30/22 Previous Rx's Medication Instructions Recorded Oseltamivir [Tamiflu] 75 mg PO Q12HR #10 cap 11/15/22 Allergies Allergy/AdvReac Type Severity Reaction Status Date / Time No Known Allergies Allergy Verified 11/15/22 06:35 Review of Systems ROS Statement: Those systems with pertinent positive or pertinent negative responses have been documented in the HPI. ROS Other: All systems not noted in ROS Statement are negative. Past Medical History Past Medical History: Atrial Flutter, Hyperlipidemia, Pneumonia Additional Past Medical History / Comment(s): MVP, hypotension, 1970s gastric ulcer, 1976 legionnaire's, UTI, benign colon polyps, pacemaker History of Any Multi-Drug Resistant Organisms: None Reported Past Surgical History: Bowel Resection, Ear Surgery, Heart Catheterization, Hysterectomy, Joint Replacement, Orthopedic Surgery Additional Past Surgical History / Comment(s): 06/2020 L knee arthroplasty, L knee arthroscopy, EGD, colonoscopies and had bowel tear (tissue was thin) then had bowel resection, L ear surgery, D&Cs, pacemaker Past Anesthesia/Blood Transfusion Reactions: No Reported Reaction Additional Past Anesthesia/Blood Transfusion Reaction / Comment(s): Pt states she is sensitive to anesthetic medications. Type of Cardiac Device: Loop Device Placement Date:: 2018 Past Psychological History: No Psychological Hx Reported Smoking Status: Current some day smoker, Light tobacco smoker Past Alcohol Use History: Daily Past Drug Use History: None Reported - Past Family History Father History Unknown: Yes Additional Family Medical History / Comment(s): Father young from suicide. Mother Family Medical History: No Reported History Additional Family Medical History / Comment(s): Pt reports that her mother had depression. General Exam General appearance: alert, in no apparent distress Head exam: Present: atraumatic, normocephalic, normal inspection Eye exam: Present: normal appearance, PERRL, EOMI. Absent: scleral icterus, conjunctival injection, periorbital swelling ENT exam: Present: normal exam, normal oropharynx, mucous membranes moist Neck exam: Present: normal inspection, full ROM. Absent: tenderness, meningismus, lymphadenopathy Respiratory exam: Present: normal lung sounds bilaterally. Absent: respiratory distress, wheezes, rales, rhonchi, stridor Cardiovascular Exam: Present: regular rate, normal rhythm, normal heart sounds. Absent: systolic murmur, diastolic murmur, rubs, gallop, clicks Neurological exam: Present: alert Skin exam: Present: warm, dry, intact, normal color. Absent: rash Course Vital Signs 11/15/22 06:31 Temperature 100 F H Pulse Rate 78 Respiratory 20 Rate Blood Pressure 156/80 O2 Sat by Pulse 96 Oximetry Medical Decision Making - Medical Decision Making Chest x-ray interpreted by me and radiology no acute process. Patient is influenza A positive negative COVID-19, negative RSV. Patient is currently stable, no signs of stress we discharged in stable condition return parameters were discussed. - Lab Data Lab Results 11/15/22 Range/Units 06:46 Influenza Type A (PCR) Detected A (Not Detectd) Influenza Type B (PCR) Not Detected (Not Detectd) RSV (PCR) Not Detected (Not Detectd) SARS-CoV-2 (PCR) Not Detected (Not Detectd) Disposition Clinical Impression: Influenza A Disposition: HOME SELF-CARE Condition: Stable Instructions (If sedation given, give patient instructions): Influenza (ED) Additional Instructions: Please return to the Emergency Department if symptoms worsen or any other concerns. Prescriptions: Oseltamivir [Tamiflu] 75 mg PO Q12HR #10 cap Is patient prescribed a controlled substance at d/c from ED?: No Referrals: Leslie Manning MD [Primary Care Provider] - 1-2 days Time of Disposition: 08:23
--- NOTE | 2022-11-15 07:55 | XR ---
EXAMINATION TYPE: XR chest 2V DATE OF EXAM: 11/15/2022 7:48 AM COMPARISON: Chest radiographs from 05/30/2022. TECHNIQUE: XR chest 2V Frontal and lateral views of the chest. CLINICAL INDICATION:Female, 77 years old with history of fever, cough; FINDINGS: Lungs/Pleura: There is flattening of the diaphragm with increased lucency of the lungs. No evidence o f pneumothorax, pleural effusion or focal consolidation. Similar bibasilar scarring and/or atelectasi s. Chronic senescent parenchymal changes. Pulmonary vascularity: Unremarkable. Heart/mediastinum: Cardiomediastinal silhouette is unremarkable. Atherosclerotic calcifications are seen in the aorta. Leadless pacemaking device within the heart. Musculoskeletal: Multiple level degenerative disc disease changes seen throughout the spine. Left reshma st wall loop recorder demonstrated. IMPRESSION: 1. No acute cardiopulmonary disease process. No significant change from prior examination. 2. COPD changes.
[2022-11-15 08:33] VITALS: BP 117/67; PULSE 60; RESP 16; TEMP 99.2
== END 2022-11-15 08:40 | disposition home or self-care (01) ==
LOC: EC 06:27
DX: J10.1 Influenza due to other identified influenza virus with other respiratory manifestations (principal); F17.200 Nicotine dependence, unspecified, uncomplicated; Z20.822 Contact with and (suspected) exposure to COVID-19
CPT/HCPCS: 71046; 87636; 99285

== ENCOUNTER 2024-07-28 16:32 | Observation (INO) | payer MEDICARE ==
--- NOTE | 2024-07-28 17:15 | ED ---
General Adult HPI - General Chief complaint: Chest Pain Stated complaint: chest pain Time Seen by Provider: 07/28/24 16:45 Source: patient, RN notes reviewed, old records reviewed Mode of arrival: ambulatory Limitations: no limitations - History of Present Illness Initial comments: This is a 78-year-old female who presents to the emergency department the past medical history significant for pacemaker high blood pressure and high cholesterol. Patient presents today because she started having some sharp anterior chest pain but it later progressed to pain in her arm and then pain across her chest. Patient states it does feel like a heaviness but she thought it might just be stress because she has a lot of stress at home. Patient denies any fever chills or cough. Patient states she is having some shortness of breath along with this chest pain as well. Patient denies any diaphoretic episode. Patient Nuys any nausea vomiting or diarrhea. - Related Data Home Medications Medication Instructions Recorded Confirmed Ezetimibe [Zetia] 10 mg PO DAILY 08/10/20 07/28/24 Apixaban [Eliquis] 5 mg PO BID 06/19/21 07/28/24 Acetaminophen Tab [Tylenol] 650 mg PO Q4H PRN 07/28/24 07/28/24 Aspirin EC [Ecotrin Low Dose] 162 mg PO ONETIME 07/28/24 07/28/24 Latanoprost [Latanoprost 0.005%] 1 drop BOTH EYES DAILY 07/28/24 07/28/24 Losartan [Cozaar] 25 mg PO DAILY 07/28/24 07/28/24 Allergies Allergy/AdvReac Type Severity Reaction Status Date / Time No Known Allergies Allergy Verified 07/28/24 17:44 Review of Systems ROS Statement: Those systems with pertinent positive or pertinent negative responses have been documented in the HPI. ROS Other: All systems not noted in ROS Statement are negative. 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, UTI, benign colon polyps, pacemaker History of Any Multi-Drug Resistant Organisms: None Reported Past Surgical History: Bowel Resection, Ear Surgery, Heart Catheterization, Hysterectomy, Joint Replacement, Orthopedic Surgery Additional Past Surgical History / Comment(s): 06/2020 L knee arthroplasty, L knee arthroscopy, EGD, colonoscopies and had bowel tear (tissue was thin) then had bowel resection, L ear surgery, D&Cs, pacemaker Past Anesthesia/Blood Transfusion Reactions: No Reported Reaction Additional Past Anesthesia/Blood Transfusion Reaction / Comment(s): Pt states she is sensitive to anesthetic medications. Type of Cardiac Device: Loop Device Placement Date:: 2018 Past Psychological History: No Psychological Hx Reported Smoking Status: Current some day smoker, Light tobacco smoker Past Alcohol Use History: Daily Past Drug Use History: None Reported - Past Family History Father History Unknown: Yes Additional Family Medical History / Comment(s): Father young from suicide. Mother Family Medical History: No Reported History Additional Family Medical History / Comment(s): Pt reports that her mother had depression. General Exam - General Exam Comments Initial Comments: GENERAL: Patient is well-developed and well-nourished. Patient is nontoxic and well- hydrated and is in mild distress. ENT: Neck is soft and supple. No significant lymphadenopathy is noted. Oropharynx is clear. Moist mucous membranes. Neck has full range of motion without eliciting any pain. EYES: The sclera were anicteric and conjunctiva were pink and moist. Extraocular movements were intact and pupils were equal round and reactive to light. Eyelids were unremarkable. PULMONARY: Unlabored respirations. Good breath sounds bilaterally. No audible rales rhon chi or wheezing was noted. CARDIOVASCULAR: There is a regular rate and rhythm without any murmurs gallops or rubs. ABDOMEN: Soft and nontender with normal bowel sounds. SKIN: Skin is clear with no lesions or rashes and otherwise unremarkable. NEUROLOGIC: Patient is alert and oriented x3. Cranial nerves II through XII are grossly intact. Motor and sensory are also intact. Normal speech, volume and content. Symmetrical smile. MUSCULOSKELETAL: Normal extremities with adequate strength and full range of motion. No lower extremity swelling or edema. No calf tenderness. LYMPHATICS: No significant lymphadenopathy is noted PSYCHIATRIC: Normal psychiatric evaluation. Limitations: no limitations Course Vital Signs 07/28/24 07/28/24 07/28/24 16:34 17:42 19:15 Temperature 97.5 F L Pulse Rate 81 95 Respiratory 16 18 18 Rate Blood Pressure 148/75 131/80 167/87 O2 Sat by Pulse 99 97 97 Oximetry Medical Decision Making - Medical Decision Making EKG is interpreted by myself. EKG shows a paced rhythm at 70 bpm OK interval is 289 QRS is 156 QT interval is 450 QTc is 471. Was pt. sent in by a medical professional or institution (, [facility], [employer], urgent care, hospital, or jail...) When possible be specific @ -No Did you speak to anyone other than the patient for history (EMS, parent, family, police, friend...)? What history was obtained from this source @ -No Did you review nursing and triage notes (agree or disagree)? Why? @ -I reviewed and agree with nursing and triage notes Were old charts reviewed (outside hosp., previous admission, EMS record, old EKG, old radiological studies, urgent care reports/EKG's, jail records)? Report findings @ -No old charts were reviewed Differential Diagnosis? @ -Differential Chest Pain: Stable Angina, Unstable Angina, STEMI, NSTEMI Aortic Dissection, Pneumothorax, Musculoskeletal, Esophageal Spasm GERD, Cholecystitis, Pancreatitis, Zoster, this is not meant to be an all-inclusive list. EKG interpreted by me (3pts min.). @ -As above X-rays interpreted by me (1pt min.). @ -Chest x-ray shows no acute abnormality CT interpreted by me (1pt min.). @ -None done U/S interpreted by me (1pt. min.). @ -None done What testing was considered but not performed or refused? (CT, X-rays, U/S, labs)? Why? @ -None What meds were considered but not given or refused? Why? @ -None Did you discuss the management of the patient with other professionals (professionals i.e. [facility] Griffin, [employer], lab, RT, psych nurse, social worker assistant, barrel drum cutter, teacher, energy control officer, employment case manager)? Give summary @ -I spoke with Dr. Elias and she agrees that the patient needs to be admitted Was smoking cessation discussed for >3mins.? @ -No Was critical care preformed (if so, how long)? @ -No Were there social determinants of health that impacted care today? How? (Homelessness, low income, unemployed, alcoholism, drug addiction, transportation, low edu. Level, literacy, decrease access to med. care, prison, rehab)? @ -No Was there de-escalation of care discussed even if they declined (Discuss DNR or withdrawal of care, Hospice)? DNR status @ -No What co-morbidities impacted this encounter? (DM, HTN, Smoking, COPD, CAD, Cancer, CVA, ARF, Chemo, Hep., AIDS, mental health diagnosis, sleep apnea, morb id obesity)? @ -None Was patient admitted / discharged? Hospital course, mention meds given and rout e, prescriptions, significant lab abnormalities, going to OR and other pertinent info. @ -Patient had no worsening of her chest pain while in the emergency department and she states it is much better than it was when she was at home. Patient was given aspirin and Nitropaste while in the emergency department. Lab work x-rays came back within normal range. I spoke with Dr. Elias and Dr. Elias agreed to admit the patient I admitted the patient I wrote admitting orders I consulted cardiology Undiagnosed new problem with uncertain prognosis? @ -No Drug Therapy requiring intensive monitoring for toxicity (Heparin, Nitro, Insulin, Cardizem)? @ -No Were any procedures done? @ -No Diagnosis/symptom? @ -Chest pain Acute, or Chronic, or Acute on Chronic? @ -Acute Uncomplicated (without systemic symptoms) or Complicated (systemic symptoms)? @ -Complicated Side effects of treatment? @ -No Exacerbation, Progression, or Severe Exacerbation? @ -No Poses a threat to life or bodily function? How? (Chest pain, USA, VT, pneumonia, PE, COPD, DKA, ARF, appy, cholecystitis, CVA, Diverticulitis, Homicidal, Suicidal, threat to staff... and all critical care pts) @ -Yes this could lead to an VT and endorgan dysfunction - Lab Data Result diagrams: 07/28/24 17:12 07/28/24 17:12 Lab Results 07/28/24 07/28/24 07/28/24 Range/Units 17:12 17:12 17:12 WBC 6.1 (3.8-10.6) k/uL RBC 3.84 (3.80-5.40) m/uL Hgb 12.9 (11.4-16.0) gm/dL Hct 38.1 (34.0-46.0) % MCV 99.1 (80.0-100.0) fL MCH 33.5 (25.0-35.0) pg MCHC 33.8 (31.0-37.0) g/dL RDW 13.6 (11.5-15.5) % Plt Count 234 (150-450) k/uL MPV 7.1 Neutrophils % 58 % Lymphocytes % 32 % Monocytes % 6 % Eosinophils % 2 % Basophils % 0 % Neutrophils # 3.5 (1.3-7.7) k/uL Lymphocytes # 1.9 (1.0-4.8) k/uL Monocytes # 0.4 (0-1.0) k/uL Eosinophils # 0.1 (0-0.7) k/uL Basophils # 0.0 (0-0.2) k/uL PT 10.4 (10.0-12.5) sec INR 0.9 (<1.2) APTT 23.3 (22.0-30.0) sec Sodium 136 L (137-145) mmol/L Potassium 4.3 (3.5-5.1) mmol/L Chloride 104 (98-107) mmol/L Carbon Dioxide 21 L (22-30) mmol/L Anion Gap 11 mmol/L BUN 15 (7-17) mg/dL Creatinine 0.98 (0.52-1.04) mg/dL Est GFR (CKD-EPI)AfAm 64 (>60 ml/min/1.73 sqM) Est GFR (CKD-EPI)NonAf 55 (>60 ml/min/1.73 sqM) Glucose 93 (74-99) mg/dL Calcium 9.8 (8.4-10.2) mg/dL Magnesium 1.7 (1.6-2.3) mg/dL Total Bilirubin 0.5 (0.2-1.3) mg/dL AST 38 H (14-36) U/L ALT 28 (4-34) U/L Alkaline Phosphatase 87 (38-126) U/L Troponin I (0.000-0.034) ng/mL Total Protein 6.9 (6.3-8.2) g/dL Albumin 4.5 (3.5-5.0) g/dL 07/28/24 Range/Units 17:12 WBC (3.8-10.6) k/uL RBC (3.80-5.40) m/uL Hgb (11.4-16.0) gm/dL Hct (34.0-46.0) % MCV (80.0-100.0) fL MCH (25.0-35.0) pg MCHC (31.0-37.0) g/dL RDW (11.5-15.5) % Plt Count (150-450) k/uL MPV Neutrophils % % Lymphocytes % % Monocytes % % Eosinophils % % Basophils % % Neutrophils # (1.3-7.7) k/uL Lymphocytes # (1.0-4.8) k/uL Monocytes # (0-1.0) k/uL Eosinophils # (0-0.7) k/uL Basophils # (0-0.2) k/uL PT (10.0-12.5) sec INR (<1.2) APTT (22.0-30.0) sec Sodium (137-145) mmol/L Potassium (3.5-5.1) mmol/L Chloride (98-107) mmol/L Carbon Dioxide (22-30) mmol/L Anion Gap mmol/L BUN (7-17) mg/dL Creatinine (0.52-1.04) mg/dL Est GFR (CKD-EPI)AfAm (>60 ml/min/1.73 sqM) Est GFR (CKD-EPI)NonAf (>60 ml/min/1.73 sqM) Glucose (74-99) mg/dL Calcium (8.4-10.2) mg/dL Magnesium (1.6-2.3) mg/dL Total Bilirubin (0.2-1.3) mg/dL AST (14-36) U/L ALT (4-34) U/L Alkaline Phosphatase (38-126) U/L Troponin I 0.017 (0.000-0.034) ng/mL Total Protein (6.3-8.2) g/dL Albumin (3.5-5.0) g/dL Disposition Clinical Impression: Chest pain Disposition: ADMITTED IP TO THIS HOSP Referrals: Leslie Manning MD [Primary Care Provider] - 1-2 days Time of Disposition: 19:27
[2024-07-28 17:25] LABS: Basophils % (A) 0 %; Eosinophils # (A) 0.1 k/uL (0-0.7); Eosinophils % (A) 2 %; HCT 38.1 % (34.0-46.0); HGB 12.9 gm/dL (11.4-16.0); Lymphocytes # (A) 1.9 k/uL (1.0-4.8); Lymphocytes % (A) 32 %; MCH 33.5 pg (25.0-35.0); MCHC 33.8 g/dL (31.0-37.0); MCV 99.1 fL (80.0-100.0); Mean Platelet Volume 7.1; Monocytes # (A) 0.4 k/uL (0-1.0); Monocytes % (A) 6 %; Neutrophils # (A) 3.5 k/uL (1.3-7.7); Neutrophils % (A) 58 %; Platelet Count 234 k/uL (150-450); RBC 3.84 m/uL (3.80-5.40); RDW 13.6 % (11.5-15.5); WBC 6.1 k/uL (3.8-10.6)
--- NOTE | 2024-07-28 17:27 | XR ---
EXAMINATION TYPE: XR chest 2V DATE OF EXAM: 07/28/2024 5:23 PM CLINICAL INDICATION: Female, 78 years old with history of Chest Pain; COMPARISON: Chest radiographs from 11/15/2022 TECHNIQUE: XR chest 2V Frontal view of the chest. FINDINGS: Lungs/Pleura: There is no evidence of pleural effusion, focal consolidation, or pneumothorax. Pulmonary vascularity: Unremarkable. Heart/mediastinum: Cardiomediastinal silhouette is unremarkable. A loop recorder projects over the le ft thorax over the heart. Musculoskeletal: No acute osseous pathology. IMPRESSION: No acute cardiopulmonary disease/process.
[2024-07-28 17:33] LABS: INR 0.9 (<1.2)
[2024-07-28 17:34] LABS: Partial Thromboplastin Time 23.3 sec (22.0-30.0); Prothrombin Time 10.4 sec (10.0-12.5)
[2024-07-28 17:37] LABS: ALT 28 U/L (4-34); AST 38 U/L (14-36); African American GFR (CKD) 64 (>60 ml/min/1.73 sqM); Albumin 4.5 g/dL (3.5-5.0); Alkaline Phosphatase 87 U/L (38-126); Anion Gap 11 mmol/L; Blood Urea Nitrogen 15 mg/dL (7-17); Calcium 9.8 mg/dL (8.4-10.2); Carbon Dioxide 21 mmol/L (22-30); Chloride 104 mmol/L (98-107); Glucose 93 mg/dL (74-99); Magnesium 1.7 mg/dL (1.6-2.3); Non-African American GFR(CKD) 55 (>60 ml/min/1.73 sqM); Potassium 4.3 mmol/L (3.5-5.1); Sodium 136 mmol/L (137-145); Total Bilirubin 0.5 mg/dL (0.2-1.3); Total Protein 6.9 g/dL (6.3-8.2)
[2024-07-28] MEDS: ASPIRIN 81 MG PO STA (17:38)
[2024-07-28] MEDS: NITROGLYCERIN OINT 1 INCH/GM PACKET TOPICAL STA (17:39)
[2024-07-28] MEDS ORDERED: NITROGLYCERIN SL TABS 0.4 MG TAB SUBLINGUAL PRN (19:27)
[2024-07-28] MEDS: APIXABAN 5 MG TAB PO SCH (21:49)
[2024-07-29] MEDS: NITROGLYCERIN OINT 1 INCH/GM PACKET TOPICAL SCH (01:04)
[2024-07-29 07:34] VITALS: BP 169/87; PULSE 74; RESP 16; TEMP 98.4
[2024-07-29] MEDS: ASPIRIN 325 MG TAB PO SCH (08:50)
[2024-07-29] MEDS: LATANOPROST 0.005% OPHTH DROPS 2.5 ML BTL BOTH EYES SCH (08:50)
[2024-07-29] MEDS: EZETIMIBE 10 MG TAB PO SCH (08:50)
[2024-07-29] MEDS: LOSARTAN 25 MG TAB PO SCH (08:50)
--- NOTE | 2024-07-29 11:42 | P.HPIM ---
History of Present Illness H&P Date: 07/29/24 Patient is a 78-year-old female with history of MVP, pacemaker placement due to A-fib, GERD, CAD with stent placement and hypertension came in for chest pain that is substernal, sharp, with a maximum intensity of 5 out of 10, radiating to the arm with associated pleuritic shortness of breath. She reports at the time she was on an increased amount of stress at the time her chest pain began. She denies fever, chills, cough, nausea vomiting, diarrhea, leg pain, abdominal pain, or cough. EKG shows paced rhythm rate of 70 QTc 471 Chest x-ray shows no acute process. Troponin is negative at 0.024 WBC 6.1 hemoglobin 12.9 platelet 234 PT 10.4 INR 0.9 PTT 23.3. [Vitals] ED documentation reviewed. Review of systems: Pertinent positives and negatives as discussed in HPI, a complete review of systems was performed and all other systems are negative. Family history: Mother had depression. 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 Physical examination: Vital signs reviewed General: non toxic, no distress, appears at stated age, normal weight Derm: no unusual rashes/lesions, warm Head: atraumatic, normocephalic, symmetric Eyes: EOMI, no lid lag, anicteric sclera, pupils equal round reactive to light ENT: Nose and ears atraumatic Neck: No cervical lymphadenopathy, trachea midline, supple Mouth: no lip lesion, mucus membranes moist Cardiovascular: S1S2 reg, no murmur Lungs: CTA bilateral, no rhonchi, no rales, no accessory muscle use Abdominal: soft, nontender to palpation, no guarding Ext: muscle strength 5 out of 5 in all 4 extremities grossly, no gross muscle atrophy, no contractures, positive dorsalis pedis pulse bilateral, no edema Neuro: CN II-XI grossly intact, no gross focal neuro deficits Psych: Alert, oriented, appropriate affect and mood Assessment/Plan: #. Atypical chest pain, rule out ACS, pulmonary embolism, stress induced chest pain, GERD Patient is currently asymptomatic and stable. EKG shows no ST elevations. Troponins are negative -Continue with nitroglycerin sublingual -Continue Eliquis 5mg PO BID -Continue with aspirin 325 p.o. OD -Consult cardiology DVT prophylaxis: Eliquis Chronic conditions: Hypertension, hyperlipidemia, A-fib, pacemaker placement, MVP, GERD The patient is admitted with an anticipated less than than 2 midnight stay for evaluation of chest pain CODE STATUS: no code Discussed with: Patient Anticipated discharge place: Home Attestation: I have personally seen and examined the patient with Resident, reviewed the documentation and participated and agree with the assessment and plan as written. 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, UTI, benign colon polyps, pacemaker History of Any Multi-Drug Resistant Organisms: None Reported Past Surgical History: Bowel Resection, Ear Surgery, Heart Catheterization, Hysterectomy, Joint Replacement, Orthopedic Surgery Additional Past Surgical History / Comment(s): 06/2020 L knee arthroplasty, R knee arthroscopy, EGD, colonoscopies and had bowel tear (tissue was thin) then had bowel resection, L ear surgery, D&Cs, pacemaker Past Anesthesia/Blood Transfusion Reactions: No Reported Reaction Additional Past Anesthesia/Blood Transfusion Reaction / Comment(s): Pt states she is sensitive to anesthetic medications. Type of Cardiac Device: Loop Device Placement Date:: 2018 Past Psychological History: No Psychological Hx Reported Additional Psychological History / Comment(s): Pt resides with her spouse. She is independent. She is currently using a cane d/t recent L knee replacement. Smoking Status: Never smoker Past Alcohol Use History: Occasional Past Drug Use History: None Reported - Past Family History Father History Unknown: Yes Additional Family Medical History / Comment(s): Father young from suicide. Mother Family Medical History: No Reported History Additional Family Medical History / Comment(s): Pt reports that her mother had depression. Medications and Allergies Home Medications Medication Instructions Recorded Confirmed Type Ezetimibe [Zetia] 10 mg PO DAILY 08/10/20 07/28/24 History Apixaban [Eliquis] 5 mg PO BID 06/19/21 07/28/24 History Acetaminophen Tab [Tylenol] 650 mg PO Q4H PRN 07/28/24 07/28/24 History Aspirin EC [Ecotrin Low Dose] 162 mg PO ONETIME 07/28/24 07/28/24 History Latanoprost [Latanoprost 0.005%] 1 drop BOTH EYES DAILY 07/28/24 07/28/24 History Losartan [Cozaar] 25 mg PO DAILY 07/28/24 07/28/24 History Allergies Allergy/AdvReac Type Severity Reaction Status Date / Time No Known Allergies Allergy Verified 07/28/24 17:44 Physical Exam Vitals: Vital Signs Temp Pulse Pulse Resp BP BP Pulse Ox 07/29/24 07:00 98.4 F 74 16 169/87 98 07/29/24 02:27 98.0 F 64 15 129/69 98 07/28/24 20:35 64 18 135/64 98 07/28/24 19:15 95 18 167/87 97 07/28/24 17:42 18 131/80 97 07/28/24 16:34 97.5 F L 81 16 148/75 99 Intake and Output 07/28/24 07/29/24 07/29/24 22:59 06:59 14:59 Other: Voiding Method Toilet # Voids 1 1 Weight 68.946 kg Results CBC & Chem 7: 07/28/24 17:12 07/28/24 17:12 Labs: Abnormal Lab Results - Last 24 Hours (Table) 07/28/24 Range/Units 17:12 Sodium 136 L (137-145) mmol/L Carbon Dioxide 21 L (22-30) mmol/L AST 38 H (14-36) U/L
[2024-07-29] MEDS ORDERED: ACETAMINOPHEN TAB 325 MG TAB PO PRN (11:43)
[2024-07-29 12:38] LABS: Chol/HDL Ratio 2.52 Ratio; LDL Cholesterol,Calculated 83.2 mg/dL (0.0-131.0); VLDL Calculation 17.38 mg/dL (5.00-40.00)
--- NOTE | 2024-07-29 14:13 | P.DS ---
Providers Date of admission: 07/28/24 19:29 Attending physician: Daksha Elias MD Consults: 07/28/24 19:27 Consult Physician Urgent Consulting Provider: [facility] Consult Reason/Comments: Chest Pain Do you want consulting provider notified?: Yes Primary care physician: Leslie Manning Assessment: Hospital Course: Patient is a 78-year-old female with history of MVP, pacemaker placement due to A-fib, GERD, CAD with stent placement and hypertension came in for chest pain that is substernal, sharp, with a maximum intensity of 5 out of 10, radiating to the arm with associated pleuritic shortness of breath. She reports at the time she was on an increased amount of stress at the time her chest pain began. She denies fever, chills, cough, nausea vomiting, diarrhea, leg pain, abdominal p ain, or cough. Patient was admitted due to atypical chest pain. On admission patient was stable and asymptomatic throughout her stay. Lab results were unremarkable and ruled out ACS. Per cardiology, she is cleared for discharge on their standpoint. Final Diagnosis: #. Atypical chest pain due to stress Chronic conditions:Hypertension, hyperlipidemia, A-fib, pacemaker placement, MVP, GERD Physical examination: Vital signs reviewed General: non toxic, no distress, appears at stated age, normal weight Derm: no unusual rashes/lesions, warm Head: atraumatic, normocephalic, symmetric Eyes: EOMI, no lid lag, anicteric sclera, pupils equal round reactive to light ENT: Nose and ears atraumatic Neck: No cervical lymphadenopathy, trachea midline, supple Mouth: no lip lesion, mucus membranes moist Cardiovascular: S1S2 reg, no murmur, Lungs: CTA bilateral, no rhonchi, no rales, no accessory muscle use Abdominal: soft, nontender to palpation, no guarding Ext: muscle strength 5 out of 5 in all 4 extremities grossly, no gross muscle atrophy, no contractures, positive dorsalis pedis pulse bilateral, no edema Neuro: CN II-XI grossly intact, no gross focal neuro deficits Psych: Alert, oriented, appropriate affect and mood Attestation: I have personally seen and examined the patient with Resident, reviewed the documentation and participated and agree with the assessment and plan as written. Patient Condition at Discharge: Stable Plan - Discharge Summary Discharge Rx Participant: No New Discharge Prescriptions: Continue Ezetimibe [Zetia] 10 mg PO DAILY Losartan [Cozaar] 25 mg PO DAILY Latanoprost [Latanoprost 0.005%] 1 drop BOTH EYES DAILY Acetaminophen Tab [Tylenol] 650 mg PO Q4H PRN PRN Reason: Pain Apixaban [Eliquis] 5 mg PO BID Aspirin EC [Ecotrin Low Dose] 162 mg PO ONETIME Discharge Medication List Ezetimibe [Zetia] 10 mg PO DAILY 08/10/20 [History] Apixaban [Eliquis] 5 mg PO BID 06/19/21 [History] Acetaminophen Tab [Tylenol] 650 mg PO Q4H PRN 07/28/24 [History] Aspirin EC [Ecotrin Low Dose] 162 mg PO ONETIME 07/28/24 [History] Latanoprost [Latanoprost 0.005%] 1 drop BOTH EYES DAILY 07/28/24 [History] Losartan [Cozaar] 25 mg PO DAILY 07/28/24 [History] Follow up Appointment(s)/Referral(s): Leslie Manning MD [Primary Care Provider] - 1-2 days Patient Instructions/Handouts: Chest Pain (DC) Discharge Disposition: HOME SELF-CARE
--- NOTE | 2024-07-29 14:57 | P.CRDCN ---
History of Present Illness Consult date: 07/29/24 Consult reason: chest pain Chief complaint: Chest pain History of present illness: History of present illness: Patient is a pleasant 78-year-old female with significant past medical history of mitral regurgitation, hyperlipidemia, atrial fibrillation status post cardioversion and ablation, SVT, Micra pacemaker who presented with complaints of chest pain. She does follow with lna Dr. Qureshi and had an echo 1 week ago at his office. She reports that yesterday she was helping her spouse with dementia in the shower when she developed left chest pain that was worse with deep breathing, she said it felt like it was a cramp. However throughout the day she felt more stressed and the pain got worse and sharper and radiated down her left arm. She did have some shortness of breath as well. She had slight nausea, no diaphoresis. She believes the nitro patch did help in the emergency room. Troponins were negative x 3. Prior echocardiogram 05/2022 with a EF 50-55%, mitral valve prolapse, moderate atrial regurgitation. She had a prior left heart cath in 2020 that was normal per patient. She is feeling fine this morning and denies any further chest pain or pressure. No shortness of breath. She would like to go home. REVIEW OF SYSTEMS: No fever or chills. No cough or expectoration. No diaphores is. Patient denies headache, dizziness, blurred vision, double vision. Patient denies any stomach discomfort. No nausea, vomiting. No hematochezia. No hematemesis. Denies any black stools or blood in his stools. Denies dysuria or hematuria. No muscle weakness or numbness. No chest pain or pressure. PHYSICAL EXAMINATION: This is a 78-year-old female in no apparent distress at the time of my examination. HEENT: Head is atraumatic, normocephalic. Pupils are equal, round. Sclerae anicteric. Conjunctivae are clear. Mucous membranes of the mouth are moist. Neck is supple. There is no jugular venous distention. No carotid bruit is heard. CHEST EXAMINATION: Lungs are clear to auscultation. No chest wall tenderness is noted on palpation or with deep breathing. HEART EXAMINATION: Heart regular rate and rhythm. S1, S2 heard. No murmurs, gallops or rub. ABDOMEN: Soft, nontender. Bowel sounds are heard. EXTREMITIES: 2+ peripheral pulses with no evidence of peripheral edema and no calf tenderness noted. NEUROLOGIC EXAMINATION: Patient is awake, alert and oriented x3. IMPRESSION AND PLAN: Mitral regurgitation Hyperlipidemia Atrial for, paroxysmal Status post Micra pacemaker SVT Chest pain PLAN: ACS ruled out. Discussed recommendation of stress testing tomorrow versus outpatient stress test. Patient would like to go home and follow-up with her lna. She was advised if her symptoms worsen to return back to the emergency department. Continue with current regimen. Follow-up in outpatient clinic in 1 week with her lna. I am dictating on behalf of Dr. Mina Maria's history/physical and assessment/plan. 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, UTI, benign colon polyps, pacemaker History of Any Multi-Drug Resistant Organisms: None Reported Past Surgical History: Bowel Resection, Ear Surgery, Heart Catheterization, Hysterectomy, Joint Replacement, Orthopedic Surgery Additional Past Surgical History / Comment(s): 06/2020 L knee arthroplasty, R knee arthroscopy, EGD, colonoscopies and had bowel tear (tissue was thin) then had bowel resection, L ear surgery, D&Cs, pacemaker Past Anesthesia/Blood Transfusion Reactions: No Reported Reaction Additional Past Anesthesia/Blood Transfusion Reaction / Comment(s): Pt states she is sensitive to anesthetic medications. Type of Cardiac Device: Loop Device Placement Date:: 2018 Past Psychological History: No Psychological Hx Reported Additional Psychological History / Comment(s): Pt resides with her spouse. She is independent. She is currently using a cane d/t recent L knee replacement. Smoking Status: Never smoker Past Alcohol Use History: Occasional Past Drug Use History: None Reported - Past Family History Father History Unknown: Yes Additional Family Medical History / Comment(s): Father young from suicide. Mother Family Medical History: No Reported History Additional Family Medical History / Comment(s): Pt reports that her mother had depression. Medications and Allergies Home Medications Medication Instructions Recorded Confirmed Type Ezetimibe [Zetia] 10 mg PO DAILY 08/10/20 07/28/24 History Apixaban [Eliquis] 5 mg PO BID 06/19/21 07/28/24 History Acetaminophen Tab [Tylenol] 650 mg PO Q4H PRN 07/28/24 07/28/24 History Aspirin EC [Ecotrin Low Dose] 162 mg PO ONETIME 07/28/24 07/28/24 History Latanoprost [Latanoprost 0.005%] 1 drop BOTH EYES DAILY 07/28/24 07/28/24 Hist ory Losartan [Cozaar] 25 mg PO DAILY 07/28/24 07/28/24 History Allergies Allergy/AdvReac Type Severity Reaction Status Date / Time No Known Allergies Allergy Verified 07/28/24 17:44 Physical Exam Vitals: Vital Signs Temp Pulse Pulse Resp BP BP Pulse Ox 07/29/24 07:00 98.4 F 74 16 169/87 98 07/29/24 02:27 98.0 F 64 15 129/69 98 07/28/24 20:35 64 18 135/64 98 07/28/24 19:15 95 18 167/87 97 07/28/24 17:42 18 131/80 97 07/28/24 16:34 97.5 F L 81 16 148/75 99 Intake and Output 07/28/24 07/29/24 07/29/24 22:59 06:59 14:59 Intake Total 236 Balance 236 Intake: Oral 236 Other: Voiding Method Toilet # Voids 1 1 Weight 68.946 kg Results 07/28/24 17:12 07/28/24 17:12 Cardiac Enzymes 07/28/24 07/28/24 07/28/24 Range/Units 17:12 17:12 20:20 AST 38 H (14-36) U/L Troponin I 0.017 0.023 (0.000-0.034) ng/mL 07/28/24 Range/Units 23:58 AST (14-36) U/L Troponin I 0.024 (0.000-0.034) ng/mL Coagulation 07/28/24 Range/Units 17:12 PT 10.4 (10.0-12.5) sec APTT 23.3 (22.0-30.0) sec Lipids 07/29/24 Range/Units 06:13 Triglycerides 86.90 (0.00-149.00) mg/dL Cholesterol 167.00 (0.00-200.00) mg/dL HDL Cholesterol 66.40 H (40.00-60.00) mg/dL Cholesterol/HDL Ratio 2.52 Ratio CBC 07/28/24 Range/Units 17:12 WBC 6.1 (3.8-10.6) k/uL RBC 3.84 (3.80-5.40) m/uL Hgb 12.9 (11.4-16.0) gm/dL Hct 38.1 (34.0-46.0) % Plt Count 234 (150-450) k/uL Comprehensive Metabolic Panel 07/28/24 Range/Units 17:12 Sodium 136 L (137-145) mmol/L Potassium 4.3 (3.5-5.1) mmol/L Chloride 104 (98-107) mmol/L Carbon Dioxide 21 L (22-30) mmol/L BUN 15 (7-17) mg/dL Creatinine 0.98 (0.52-1.04) mg/dL Glucose 93 (74-99) mg/dL Calcium 9.8 (8.4-10.2) mg/dL AST 38 H (14-36) U/L ALT 28 (4-34) U/L Alkaline Phosphatase 87 (38-126) U/L Total Protein 6.9 (6.3-8.2) g/dL Albumin 4.5 (3.5-5.0) g/dL Intake and Output 07/28/24 07/29/24 07/29/24 22:59 06:59 14:59 Intake Total 236 Balance 236 Intake: Oral 236 Other: Voiding Method Toilet # Voids 1 1 Weight 68.946 kg 07/28/24 17:12 07/28/24 17:12
== END 2024-07-29 14:30 | disposition home or self-care (01) ==
LOC: EC 16:32 → 6NMEDSUR 19:29
PROVIDERS: ADMIT Internal Medicine; ATTEND Internal Medicine
DX: R07.89 Other chest pain (principal); I10 Essential (primary) hypertension; E78.00 Pure hypercholesterolemia, unspecified; I48.91 Unspecified atrial fibrillation; I34.0 Nonrheumatic mitral (valve) insufficiency; I47.10 Supraventricular tachycardia, unspecified; K21.9 Gastro-esophageal reflux disease without esophagitis; I25.10 Atherosclerotic heart disease of native coronary artery without angina pectoris; F17.200 Nicotine dependence, unspecified, uncomplicated; Z95.0 Presence of cardiac pacemaker; Z95.5 Presence of coronary angioplasty implant and graft; Z79.01 Long term (current) use of anticoagulants; Z79.82 Long term (current) use of aspirin; Z79.899 Other long term (current) drug therapy
CPT/HCPCS: 36415; 71046; 80053; 80061; 83735; 84484; 85025; 85610; 85730; 93005; 99285